=== PATIENT | female | born 1970 | race Caucasian/White ===

== ENCOUNTER 2017-05-15 16:39 | Emergency (ER) | payer OTHER ==
[~2017-05-15] VITALS: Ht 170.2 cm; Wt 86.0 kg
[~2017-05-15 16:39] MED LIST: METF10002
[2017-05-15] MEDS ORDERED: SODIUM CHLORIDE 0.9% 500 ML IV ONE (17:02)
[2017-05-15 17:31] LABS: BASOPHILS % 0.5 % (0.0-2.0); EOSINOPHILS % 0.5 % (0.0-5.0); HEMOGLOBIN. 13.3 g/dL (12.0-16.0); LYMPHOCYTES % 20.8 % (20.0-50.0); MEAN PLATELET VOLUME 8.8 fl (7.4-10.4); MONOCYTES % 4.3 % (2.0-8.0); NEUTROPHILS % 73.9 % (40.0-76.0); PLATELET 316 x1000/uL (130-400); RED CELL DISTRIBUTION WIDTH 13.8 % (11.6-14.6)
[2017-05-15 17:37] LABS: CHLORIDE 100 mEq/L (98-107)
[2017-05-15 17:43] LABS: PHOSPHORUS 3.1 mg/dL (2.5-4.9)
[2017-05-15 20:28] LABS: HCG SCREEN NEGATIVE
[2017-05-15] MEDS ORDERED: KETOROLAC 30MG/ML VIAL IV ONE (20:45)
[2017-05-15] MEDS ORDERED: BACITRACIN ZINC OINT UDPKT TOP ONE (20:45)
[2017-05-15] MEDS ORDERED: INSULIN GLARGINE UD 100 UNITS/ML SYR SUBCUT ONE (20:45)
[2017-05-15] MEDS ORDERED: CEPHALEXIN 500MG CAPSULE PO ONE (20:45)
[2017-05-15] MEDS ORDERED: LIDOCAINE HCL 1%/EPI 1:200,000 30 ML VIAL MC ONE (20:45)
[2017-05-15] MEDS ORDERED: LIDOCAINE 1%/EPI 1:100,000 10 ML VIAL IJ NR (20:47)
[2017-05-15 22:57] LABS: CHLORIDE 103 mEq/L (98-107)
[2017-05-15 23:06] LABS: *AMPHETAMINES SCREEN URINE NEGATIVE (NEGATIVE); *BARBITURATES SCREEN URINE NEGATIVE (NEGATIVE); *BENZODIAZEPINES SCREEN URINE NEGATIVE (NEGATIVE); *COCAINE SCREEN URINE NEGATIVE (NEGATIVE); METHADONE URINE SCREEN NEGATIVE (NEGATIVE); PHENCYCLIDINE URINE SCREEN NEGATIVE (NEGATIVE)
[2017-05-15 23:11] LABS: CANNABINOID URINE SCREEN PRESUMTIVE POSITIVE (NEGATIVE); OPIATES URINE SCREEN PRESUMTIVE POSITIVE (NEGATIVE)
[2017-05-15 23:50] VITALS: BP 128/80
== END 2017-05-16 00:15 | disposition home or self-care (01) ==
LOC: ER 16:39
DX: E11.65 Type 2 diabetes mellitus with hyperglycemia (principal); L02.415 Cutaneous abscess of right lower limb; I10 Essential (primary) hypertension; F17.200 Nicotine dependence, unspecified, uncomplicated; F12.10 Cannabis abuse, uncomplicated; Z98.890 Other specified postprocedural states; Z79.4 Long term (current) use of insulin
CPT/HCPCS: 36415; 73590; 80048; 80305; 82962; 83735; 84100; 84703; 85025; 96361; 96372; 96374; 99285; J1815; J1885; J3490; J7040

== ENCOUNTER 2017-08-18 03:55 | Emergency (ER) | payer OTHER ==
[~2017-08-18] VITALS: Ht 170.2 cm; Wt 91.0 kg
[~2017-08-18 03:55] MED LIST changes: -METF10002; +METF10004
[2017-08-18] MEDS ORDERED: LIDOCAINE 5% PATCH TOP SCH (04:45)
[2017-08-18] MEDS ORDERED: KETOROLAC 60MG/2ML VIAL IM ONE (04:45)
[2017-08-18 05:50] VITALS: BP 132/71
== END 2017-08-18 06:13 | disposition home or self-care (01) ==
LOC: ER 03:55
DX: E11.621 Type 2 diabetes mellitus with foot ulcer (principal); I10 Essential (primary) hypertension; F17.200 Nicotine dependence, unspecified, uncomplicated; Z98.890 Other specified postprocedural states
CPT/HCPCS: 73630; 96372; 99284; 99406; J1885

== ENCOUNTER 2017-09-28 01:06 | Emergency (ER) | payer MEDICAID, OTHER ==
[~2017-09-28] VITALS: Ht 167.6 cm; Wt 73.0 kg
[2017-09-28] MEDS ORDERED: ONDANSETRON HCL 4MG/2ML VIAL IV ONE (02:00)
[2017-09-28] MEDS ORDERED: METOCLOPRAMIDE HCL 10MG/2ML VIAL IV ONE (02:00)
[2017-09-28] MEDS ORDERED: FAMOTIDINE 20MG/2ML VIAL IV STA (02:01)
[2017-09-28] MEDS ORDERED: SODIUM CHLORIDE 0.9% 1,000 ML IV ONE (02:01)
[2017-09-28] MEDS ORDERED: KETOROLAC 30MG/ML VIAL IV ONE (02:15)
[2017-09-28 02:51] LABS: CHLORIDE 97 mEq/L (98-107)
[2017-09-28 02:55] LABS: ETHANOL BLOOD < 10 mg/dL
[2017-09-28 03:13] LABS: BASOPHILS % 0.1 % (0.0-2.0); HEMOGLOBIN. 15.4 g/dL (12.0-16.0); LYMPHOCYTES % 9.3 % (20.0-50.0); MEAN CORPUSCULAR HEMOGLOBIN 30.5 pg (28.0-32.0); MEAN CORPUSCULAR VOLUME 90.8 fL (81.0-99.0); MEAN PLATELET VOLUME 8.7 fl (7.4-10.4); MONOCYTES % 2.7 % (2.0-8.0); NEUTROPHILS % 87.9 % (40.0-76.0); PLATELET 393 x1000/uL (130-400); RED BLOOD CELL COUNT 5.06 mill/uL (4.2-5.4); RED CELL DISTRIBUTION WIDTH 13.9 % (11.6-14.6)
[2017-09-28 04:43] VITALS: BP 121/78
== END 2017-09-28 04:44 | disposition home or self-care (01) ==
LOC: ER 01:29 → EDBEDREQ 02:08 → ER 04:44 → CANBEDREQ 05:56
DX: F11.23 Opioid dependence with withdrawal (principal); E11.65 Type 2 diabetes mellitus with hyperglycemia; I10 Essential (primary) hypertension; R19.7 Diarrhea, unspecified; M54.30 Sciatica, unspecified side; R20.8 Other disturbances of skin sensation; F17.200 Nicotine dependence, unspecified, uncomplicated; Z98.890 Other specified postprocedural states; Z88.9 Allergy status to unspecified drugs, medicaments and biological substances; Z79.899 Other long term (current) drug therapy
CPT/HCPCS: 36415; 80053; 82962; 83690; 85025; 96374; 96375; 99284; G0482; J1885; J2405; J2765; J3490; J7030; Z7610

== ENCOUNTER 2017-12-01 13:29 | Emergency (ER) | payer MEDICAID, OTHER ==
[~2017-12-01] VITALS: Ht 170.2 cm; Wt 95.0 kg
[~2017-12-01 13:29] MED LIST changes: +METF-416; -METF10004
[2017-12-01] MEDS ORDERED: HYDROCODONE/ACETAMINOPHEN 5/325MG TABLET PO STA (14:49)
[2017-12-01] MEDS ORDERED: SODIUM CHLORIDE 0.9% 1,000 ML IV ONE (14:49)
[2017-12-01 15:20] LABS: BASOPHILS % 0.7 % (0.0-2.0); EOSINOPHILS % 1.5 % (0.0-5.0); HEMATOCRIT. 36.8 % (36.0-48.0); HEMOGLOBIN. 12.4 g/dL (12.0-16.0); LYMPHOCYTES % 26.5 % (20.0-50.0); MEAN CORPUSCULAR HEMOGLOBIN 31.4 pg (28.0-32.0); MEAN CORPUSCULAR VOLUME 93.6 fL (81.0-99.0); MEAN PLATELET VOLUME 8.4 fl (7.4-10.4); MONOCYTES % 3.7 % (2.0-8.0); NEUTROPHILS % 67.6 % (40.0-76.0); PLATELET 338 x1000/uL (130-400); RED BLOOD CELL COUNT 3.93 mill/uL (4.2-5.4); RED CELL DISTRIBUTION WIDTH 13.5 % (11.6-14.6)
[2017-12-01 15:29] LABS: PROTHROMBIN TIME 10.4 sec (9.1-11.1)
[2017-12-01 15:32] LABS: CHLORIDE 102 mEq/L (98-107)
[2017-12-01] MEDS ORDERED: INSULIN REGULAR (HUMULIN R) 300UNITS/3ML SUBCUT ONE (16:00)
[2017-12-01 16:07] LABS: C REACTIVE PROTEIN QUANT 3.6 mg/L (0.0-3.0)
[2017-12-01 16:58] LABS: CLARITY URINE CLEAR (CLEAR); COLOR URINE YELLOW (YELLOW); KETONES URINE NEGATIVE (NEGATIVE); LEUKOCYTE ESTERASE URINE NEGATIVE (NEGATIVE); NITRITE URINE NEGATIVE (NEGATIVE); OCCULT BLOOD URINE TRACE (NEGATIVE); PH URINE 5.5 (4.5-8.0); PROTEIN URINE 1+ (NEGATIVE); SPECIFIC GRAVITY URINE 1.042 (1.005-1.030); UROBILINOGEN URINE 0.2 E.U./dL (0.2-1.0)
[2017-12-01 17:50] VITALS: BP 131/74
== END 2017-12-01 18:02 | disposition home or self-care (01) ==
LOC: ER 14:27
DX: E11.621 Type 2 diabetes mellitus with foot ulcer (principal); L97.411 Non-pressure chronic ulcer of right heel and midfoot limited to breakdown of skin; I10 Essential (primary) hypertension; F17.200 Nicotine dependence, unspecified, uncomplicated; Z79.4 Long term (current) use of insulin
CPT/HCPCS: 36415; 73630; 80053; 81003; 81025; 82962; 83605; 84484; 85025; 85610; 86140; 96372; 99285; J1815; J7030

== ENCOUNTER 2018-09-02 21:36 | Emergency (ER) | payer MEDICAID ==
[~2018-09-02] VITALS: Ht 170.2 cm; Wt 100.0 kg
[~2018-09-02 21:36] MED LIST changes: +BENA10TA10 PO; +GABA-290 PO; +INSU100I24 SQ; +LORA2TAB95 PO; -METF-416; +METF-416 PO; +SIMV10TA6 PO
[2018-09-02 23:09] LABS: BASOPHILS % 0.7 % (0.0-2.0); EOSINOPHILS % 2.5 % (0.0-5.0); HEMATOCRIT. 33.3 % (36.0-48.0); HEMOGLOBIN. 10.8 g/dL (12.0-16.0); MEAN CORPUSCULAR HEMOGLOBIN 30.1 pg (28.0-32.0); MEAN CORPUSCULAR VOLUME 93.2 fL (81.0-99.0); MEAN PLATELET VOLUME 9.1 fl (7.4-10.4); NEUTROPHILS % 60.8 % (40.0-76.0); PLATELET 256 x1000/uL (130-400); RED BLOOD CELL COUNT 3.57 mill/uL (4.2-5.4); RED CELL DISTRIBUTION WIDTH 14.5 % (11.6-14.6)
[2018-09-02 23:13] LABS: HCG SCREEN NEGATIVE
[2018-09-02 23:13] LABS: CLARITY URINE CLEAR (CLEAR); COLOR URINE YELLOW (YELLOW); KETONES URINE NEGATIVE (NEGATIVE); LEUKOCYTE ESTERASE URINE NEGATIVE (NEGATIVE); NITRITE URINE NEGATIVE (NEGATIVE); OCCULT BLOOD URINE TRACE (NEGATIVE); PROTEIN URINE 1+ (NEGATIVE); SPECIFIC GRAVITY URINE 1.039 (1.005-1.030); UROBILINOGEN URINE 0.2 E.U./dL (0.2-1.0)
[2018-09-02 23:15] LABS: CHLORIDE 103 mEq/L (98-107)
[2018-09-02 23:16] LABS: PROTHROMBIN TIME 10.1 sec (9.6-11.0)
[2018-09-02 23:21] LABS: ETHANOL BLOOD < 10 mg/dL
[2018-09-02 23:24] LABS: *AMPHETAMINES SCREEN URINE NEGATIVE (NEGATIVE); *BARBITURATES SCREEN URINE NEGATIVE (NEGATIVE); *COCAINE SCREEN URINE NEGATIVE (NEGATIVE); METHADONE URINE SCREEN NEGATIVE (NEGATIVE)
[2018-09-02 23:25] LABS: CANNABINOID URINE SCREEN NEGATIVE (NEGATIVE); PHENCYCLIDINE URINE SCREEN NEGATIVE (NEGATIVE)
[2018-09-02 23:29] LABS: *BENZODIAZEPINES SCREEN URINE NEGATIVE (NEGATIVE)
[2018-09-02] MEDS ORDERED: ONDANSETRON HCL 4MG/2ML INJ IV STA (23:34)
[2018-09-02] MEDS ORDERED: MORPHINE SULFATE 4 MG/ML CPJ (NOT FOR IM USE) IV STA (23:34)
[2018-09-02 23:43] LABS: OPIATES URINE SCREEN PRESUMTIVE POSITIVE (NEGATIVE)
[2018-09-02] MEDS ORDERED: SODIUM CHLORIDE 0.9% 2,000 ML IV ONE (23:48)
[2018-09-03] MEDS ORDERED: INSULIN REGULAR (HUMULIN R) 300UNITS/3ML SUBCUT ONE
[2018-09-03] MEDS ORDERED: KETOROLAC 30MG/ML VIAL IV ONE (01:45)
[2018-09-03 04:48] VITALS: BP 165/79
== END 2018-09-03 04:50 | disposition home or self-care (01) ==
LOC: ER 21:36
DX: E11.65 Type 2 diabetes mellitus with hyperglycemia (principal); R31.9 Hematuria, unspecified; R11.10 Vomiting, unspecified; R06.02 Shortness of breath; F17.200 Nicotine dependence, unspecified, uncomplicated; Z79.4 Long term (current) use of insulin; Z79.899 Other long term (current) drug therapy; Z87.39 Personal history of other diseases of the musculoskeletal system and connective tissue
CPT/HCPCS: 36415; 71045; 74176; 80053; 80305; 80320; 81003; 82962; 83690; 84703; 85025; 85610; 93005; 96361; 96372; 96374; 96375; 99284; J1815; J2270; J2405; J7030; J1885; G0480

== ENCOUNTER 2018-10-20 12:56 | Inpatient (IN) | payer MEDICAID ==
[~2018-10-20] VITALS: Ht 170.2 cm; Wt 100.9 kg
[~2018-10-20 12:56] MED LIST changes: -BENA10TA10 PO; +BENA10TA12 PO
[2018-10-20] MEDS ORDERED: ONDANSETRON HCL 4MG/2ML INJ IV STA (13:54)
[2018-10-20] MEDS ORDERED: MORPHINE SULFATE 4 MG/ML CPJ (NOT FOR IM USE) IV STA (13:54)
[2018-10-20] MEDS ORDERED: SODIUM CHLORIDE 0.9% 1000ML BAG (SEPSIS BOLUS) IV ONE (14:00)
[2018-10-20] MEDS ORDERED: VANCOMYCIN 1 G PREMIX 200 ML IV ONE (14:00)
[2018-10-20] MEDS ORDERED: ACETAMINOPHEN 325MG TABLET PO ONE (14:00)
[2018-10-20] MEDS ORDERED: PIPERACILLIN/TAZ 3.375G PREMIX 50 ML IV ONE (14:00)
[2018-10-20 14:15] LABS: BG BASE EXCESS -4.3 mmol/L (-2.0-2.0); BG CARBOXYHEMOGLOBIN 4.1 % (0.5-1.5); BG DEOXYHEMOGLOBIN 6.8 % (0.0-5.0); BG FRACTION INSPIRED OXYGEN 21; BG METHEMOGLOBIN 0.2 % (0.0-1.5); BG OXYGEN SATURATION 92.9 % (92.0-98.5); BG OXYHEMOGLOBIN 88.9 % (94.0-97.0); BG PCO2 39.5 mmHg (35.0-45.0); BG PH 7.344 (7.350-7.450); BG SAMPLE SITE RIGHT BRACHIAL; BG TOTAL HEMOGLOBIN 11.3 g/dL (12.0-18.0); BG VENT MODE ROOM AIR
[2018-10-20 14:29] LABS: HEMATOCRIT. 37.2 % (36.0-48.0); HEMOGLOBIN. 11.9 g/dL (12.0-16.0); MEAN CORPUSCULAR HEMOGLOBIN 30.3 pg (28.0-32.0); MEAN CORPUSCULAR VOLUME 94.9 fL (81.0-99.0); MEAN PLATELET VOLUME 9.4 fl (7.4-10.4); PLATELET 276 x1000/uL (130-400); RED BLOOD CELL COUNT 3.92 mill/uL (4.2-5.4); RED CELL DISTRIBUTION WIDTH 14.4 % (11.6-14.6)
[2018-10-20 14:34] LABS: CHLORIDE 90 mEq/L (98-107)
[2018-10-20 14:35] LABS: PROTHROMBIN TIME 9.9 sec (9.6-11.0)
[2018-10-20 14:41] LABS: BETA HYDROXYBUTYRATE 0.1 mMol/L (0.0-0.3)
[2018-10-20 14:42] LABS: HCG SCREEN NEGATIVE
[2018-10-20] MEDS ORDERED: INSULIN REGULAR (HUMULIN R) 300UNITS/3ML IV ONE (14:45)
[2018-10-20 15:13] LABS: CLARITY URINE CLEAR (CLEAR); COLOR URINE YELLOW (YELLOW); KETONES URINE NEGATIVE (NEGATIVE); LEUKOCYTE ESTERASE URINE NEGATIVE (NEGATIVE); NITRITE URINE NEGATIVE (NEGATIVE); OCCULT BLOOD URINE 1+ (NEGATIVE); PH URINE 5.5 (4.5-8.0); PROTEIN URINE NEGATIVE (NEGATIVE); UROBILINOGEN URINE 0.2 E.U./dL (0.2-1.0)
[2018-10-20 15:26] LABS: *AMPHETAMINES SCREEN URINE NEGATIVE (NEGATIVE); *BENZODIAZEPINES SCREEN URINE NEGATIVE (NEGATIVE); *COCAINE SCREEN URINE NEGATIVE (NEGATIVE); CANNABINOID URINE SCREEN NEGATIVE (NEGATIVE); METHADONE URINE SCREEN NEGATIVE (NEGATIVE); PHENCYCLIDINE URINE SCREEN NEGATIVE (NEGATIVE)
[2018-10-20 15:28] LABS: *BARBITURATES SCREEN URINE NEGATIVE (NEGATIVE); OPIATES URINE SCREEN PRESUMTIVE POSITIVE (NEGATIVE)
[2018-10-20] MEDS: SODIUM CHLORIDE 0.9% 1,000 ML IV SCH (16:10)
[2018-10-20] MEDS ORDERED: ACETAMINOPHEN 325MG TABLET PO PRN (16:15)
[2018-10-20] MEDS ORDERED: PIPERACILLIN/TAZ 3.375G PREMIX 50 ML IV SCH (16:15)
[2018-10-20] MEDS ORDERED: DOCUSATE SODIUM 100MG CAPSULE PO PRN (16:15)
[2018-10-20] MEDS ORDERED: ENOXAPARIN 40MG/0.4ML SYR SUBCUT SCH (16:15)
[2018-10-20] MEDS ORDERED: ONDANSETRON HCL 4MG/2ML INJ IV PRN (16:15)
[2018-10-20] MEDS ORDERED: IPRATROPIUM/ALBUTEROL 0.5-3(2.5)MG/3ML NEB HHN PRN (16:15)
[2018-10-20] MEDS ORDERED: DIPHENHYDRAMINE 50MG/ML VIAL IV PRN (16:15)
[2018-10-20] MEDS ORDERED: MAGNESIUM/ALUMINUM HYDROXIDE/SIMETHICONE 30ML UDC PO PRN (16:15)
[2018-10-20] MEDS ORDERED: CLONIDINE 0.1MG TABLET PO PRN (16:15)
[2018-10-20] MEDS ORDERED: GUAIFENESIN 200MG/10ML SUGAR FREE UDC PO PRN (16:15)
[2018-10-20 16:45] LABS: PLATELET ESTIMATE NORMAL
[2018-10-20 16:53] LABS: PHOSPHORUS 2.6 mg/dL (2.5-4.9)
[2018-10-20] MEDS ORDERED: INSULIN REGULAR (HUMULIN R) 300UNITS/3ML SUBCUT NR (18:00)
[2018-10-20] MEDS ORDERED: MORPHINE SULFATE 4 MG/ML CPJ (NOT FOR IM USE) IV NR (18:15)
[2018-10-20] MEDS ORDERED: PIPERACILLIN/TAZ 3.375G PREMIX 50 ML IV NR (21:00)
[2018-10-20] MEDS ORDERED: ENOXAPARIN 40MG/0.4ML SYR SUBCUT NR (21:15)
[2018-10-20 22:35] VITALS: BP 138/77
[2018-10-20] MEDS ORDERED: DEXTROSE 50% WATER 50ML SYRINGE IV PRN (23:30)
[2018-10-21] VITALS (8 sets, daily range): BP systolic 100–156; BP diastolic 55–84
[2018-10-21] MEDS: HYDROCODONE/ACETAMINOPHEN 5/325MG TABLET PO PRN ×2 (00:14→06:34)
[2018-10-21] MEDS: SODIUM CHLORIDE 0.9% 1,000 ML IV SCH ×3 (02:58→23:09)
[2018-10-21] MEDS ORDERED: PIPERACILLIN/TAZOBACTAM 3.375 G in DEXT 5% WATER 100 ML IV SCH (06:00)
[2018-10-21] MEDS ORDERED: MORPHINE SULFATE 2 MG/ML CPJ (NOT FOR IM USE) IV PRN (06:15)
[2018-10-21] MEDS: BLOOD SUGAR DIAGNOSTIC STRIP TEST SCH ×4 (07:00→21:49)
[2018-10-21 07:16] LABS: CHLORIDE 108 mEq/L (98-107)
[2018-10-21 07:24] LABS: HDL CHOLESTEROL 42 mg/dL (40-59)
[2018-10-21 07:26] LABS: LDL CHOLESTEROL 115 mg/dL (5-100)
[2018-10-21] MEDS: INSULIN LISPRO 100 UNITS/ML SUBCUT SCH ×4 (07:45→23:07)
[2018-10-21] MEDS: ENOXAPARIN 30MG/0.3ML SYR SUBCUT SCH ×2 (09:29→21:46)
[2018-10-21] MEDS ORDERED: LORAZEPAM 1MG TABLET PO PRN (10:00)
[2018-10-21] MEDS: BENAZEPRIL 10MG TABLET PO SCH (10:49)
[2018-10-21] MEDS: INSULIN GLARGINE UD 100 UNITS/ML SYR SUBCUT SCH ×2 (10:58→23:18)
[2018-10-21] MEDS: VANCOMYCIN 1500MG in DEXTROSE 5% WATER 250ML IV SCH ×2 (10:58→21:41)
[2018-10-21] MEDS ORDERED: VANCOMYCIN 1250MG in DEXTROSE 5% WATER 250ML IV SCH (12:00)
[2018-10-21] MEDS: PIPERACILLIN/TAZOBACTAM 3.375 G in DEXT 5% WATER 100 ML IV SCH ×2 (13:06→18:23)
[2018-10-21] MEDS: GABAPENTIN 300MG CAPSULE PO SCH ×2 (15:51→23:00)
[2018-10-21] MEDS: MORPHINE SULFATE 2 MG/ML CPJ (NOT FOR IM USE) IV PRN ×2 (15:53→23:01)
[2018-10-21] MEDS: SILVER SULFADIAZINE 1% CREAM 50GM TOP SCH (16:00)
[2018-10-21] MEDS ORDERED: HYDROCODONE/ACETAMINOPHEN 10/325MG TABLET PO PRN (18:45)
[2018-10-21] MEDS ORDERED: ATORVASTATIN CALCIUM 10MG TABLET PO SCH (21:00)
[2018-10-21] MEDS: DICLOFENAC SODIUM 75MG DR (EC) TABLET PO SCH (21:41)
[2018-10-22] VITALS: BP 104/56
[2018-10-22] MEDS: PIPERACILLIN/TAZOBACTAM 3.375 G in DEXT 5% WATER 100 ML IV SCH ×3 (01:01→12:15)
[2018-10-22 04:00] VITALS: BP 96/56
[2018-10-22] MEDS: GABAPENTIN 300MG CAPSULE PO SCH ×2 (06:36→13:08)
[2018-10-22] MEDS: BLOOD SUGAR DIAGNOSTIC STRIP TEST SCH ×2 (06:41→12:07)
[2018-10-22 06:45] LABS: BASOPHILS % 0.4 % (0.0-2.0); EOSINOPHILS % 2.4 % (0.0-5.0); HEMATOCRIT. 29.5 % (36.0-48.0); HEMOGLOBIN. 9.8 g/dL (12.0-16.0); LYMPHOCYTES % 26.5 % (20.0-50.0); MEAN CORPUSCULAR HEMOGLOBIN 29.3 pg (28.0-32.0); MEAN CORPUSCULAR VOLUME 88.5 fL (81.0-99.0); MONOCYTES % 6.5 % (2.0-8.0); NEUTROPHILS % 64.2 % (40.0-76.0); PLATELET 249 x1000/uL (130-400); RED BLOOD CELL COUNT 3.34 mill/uL (4.2-5.4); RED CELL DISTRIBUTION WIDTH 14.6 % (11.6-14.6)
[2018-10-22] MEDS: MORPHINE SULFATE 2 MG/ML CPJ (NOT FOR IM USE) IV PRN ×2 (06:48→12:15)
[2018-10-22 08:00] VITALS: BP 114/62
[2018-10-22] MEDS: INSULIN LISPRO 100 UNITS/ML SUBCUT SCH ×2 (08:10→12:50)
[2018-10-22] MEDS: SODIUM CHLORIDE 0.9% 1,000 ML IV SCH (08:11)
[2018-10-22] MEDS: VANCOMYCIN 1500MG in DEXTROSE 5% WATER 250ML IV SCH (09:33)
[2018-10-22] MEDS: BENAZEPRIL 10MG TABLET PO SCH (09:34)
[2018-10-22] MEDS: ENOXAPARIN 30MG/0.3ML SYR SUBCUT SCH (09:34)
[2018-10-22] MEDS: DICLOFENAC SODIUM 75MG DR (EC) TABLET PO SCH (09:34)
[2018-10-22] MEDS: SILVER SULFADIAZINE 1% CREAM 50GM TOP SCH (09:43)
[2018-10-22] MEDS: INSULIN GLARGINE UD 100 UNITS/ML SYR SUBCUT SCH (10:00)
[2018-10-22 12:00] VITALS: BP 126/66
[2018-10-22] MEDS ORDERED: LEVO750T21 MT (12:42)
[2018-10-22] MEDS ORDERED: SULF1TAB48 MT (12:42)
[2018-10-22] MEDS ORDERED: ATOR10TA PO (12:42)
[2018-10-22] MEDS ORDERED: LANTUSUD SUBCUT (12:43)
[2018-10-22] MEDS ORDERED: INSULIN LISPRO 100 UNITS/ML SUBCUT NR (12:45)
[2018-10-22 14:51] VITALS: BP 126/66
[2018-10-22] MEDS ORDERED: VANCOMYCIN 1250MG in DEXTROSE 5% WATER 250ML IV SCH (21:00)
[2018-10-22] MEDS ORDERED: INSULIN GLARGINE UD 100 UNITS/ML SYR SUBCUT SCH (22:00)
== END 2018-10-22 15:18 | disposition home health service (06) | DRG 720 ==
LOC: ER 14:08 → 3WST 14:42 → EDBEDREQTM 14:47 → EDBEDREQ 14:47 → ENRESERV 22:01 → 6EST 10-21 14:23
PROVIDERS: ADMIT Internal Medicine; ATTEND Internal Medicine
DX: A41.9 Sepsis, unspecified organism (principal); E87.2 Acidosis; E11.621 Type 2 diabetes mellitus with foot ulcer; E11.42 Type 2 diabetes mellitus with diabetic polyneuropathy; E11.319 Type 2 diabetes mellitus with unspecified diabetic retinopathy without macular edema; L97.529 Non-pressure chronic ulcer of other part of left foot with unspecified severity; R31.9 Hematuria, unspecified; L03.032 Cellulitis of left toe; F17.200 Nicotine dependence, unspecified, uncomplicated; E86.0 Dehydration; D64.9 Anemia, unspecified; Z79.4 Long term (current) use of insulin; I10 Essential (primary) hypertension; E78.5 Hyperlipidemia, unspecified; E87.0 Hyperosmolality and hypernatremia; E05.90 Thyrotoxicosis, unspecified without thyrotoxic crisis or storm; E11.65 Type 2 diabetes mellitus with hyperglycemia; E78.00 Pure hypercholesterolemia, unspecified; Z79.84 Long term (current) use of oral hypoglycemic drugs
CPT/HCPCS: 36415; 36600; 71045; 73630; 73721; 80048; 80061; 80202; 80305; 81003; 82010; 82375; 82728; 82805; 82962; 83036; 83540; 83550; 83605; 83735; 83880; 83930; 83935; 84100; 84145; 84443; 84484; 84703; 87070; 87077; 87106; 93005; 93970; 97116; 97162; 97166; 99291; J1200; J1650; J1815; J2270; J2405; J2543; J3370; J7030; J7060

== ENCOUNTER 2019-02-19 13:34 | Inpatient (IN) | payer MEDICAID ==
[~2019-02-19] VITALS: Ht 170.2 cm; Wt 103.0 kg
[~2019-02-19 13:34] MED LIST changes: +ATOR10TA PO; -BENA10TA12 PO; +BENA10TA74 PO; -INSU100I24 SQ; +LANTUSUD SUBCUT; +LEVO750T21 MT; -SIMV10TA6 PO; +SULF1TAB48 MT
[2019-02-19] MEDS ORDERED: ONDANSETRON HCL 4MG/2ML INJ IV STA ×2 (15:11→16:14)
[2019-02-19] MEDS ORDERED: KETOROLAC 30MG/ML VIAL IV STA (15:11)
[2019-02-19] MEDS ORDERED: SODIUM CHLORIDE 0.9% 1,000 ML IV ONE ×4 (15:11→17:30)
[2019-02-19 15:43] LABS: EOSINOPHILS % 0.1 % (0.0-5.0); HEMOGLOBIN. 14.1 g/dL (12.0-16.0); LYMPHOCYTES % 9.1 % (20.0-50.0); MEAN CORPUSCULAR VOLUME 91.6 fL (81.0-99.0); MONOCYTES % 2.8 % (2.0-8.0); PLATELET 344 x1000/uL (130-400); RED CELL DISTRIBUTION WIDTH 13.2 % (11.6-14.6)
[2019-02-19 15:50] LABS: CHLORIDE 90 mEq/L (98-107)
[2019-02-19 15:57] LABS: BETA HYDROXYBUTYRATE 0.1 mMol/L (0.0-0.3)
[2019-02-19] MEDS ORDERED: MORPHINE SULFATE 4 MG/ML CPJ (NOT FOR IM USE) IV STA (16:14)
[2019-02-19] MEDS ORDERED: INSULIN REGULAR (HUMULIN R) 300UNITS/3ML SUBCUT ONE (17:30)
[2019-02-19 18:49] LABS: CLARITY URINE CLOUDY (CLEAR); COLOR URINE YELLOW (YELLOW); KETONES URINE NEGATIVE (NEGATIVE); LEUKOCYTE ESTERASE URINE NEGATIVE (NEGATIVE); NITRITE URINE NEGATIVE (NEGATIVE); OCCULT BLOOD URINE 1+ (NEGATIVE); PROTEIN URINE 3+ (NEGATIVE); SPECIFIC GRAVITY URINE 1.039 (1.005-1.030); UROBILINOGEN URINE 0.2 E.U./dL (0.2-1.0)
[2019-02-19 21:10] VITALS: BP 144/85
[2019-02-19] MEDS ORDERED: INSU100I24 SQ (21:54)
[2019-02-19] MEDS ORDERED: IPRATROPIUM/ALBUTEROL 0.5-3(2.5)MG/3ML NEB NEB PRN (23:30)
[2019-02-19] MEDS ORDERED: ACETAMINOPHEN 325MG TABLET PO PRN (23:30)
[2019-02-19] MEDS ORDERED: ONDANSETRON HCL 4MG/2ML INJ IV PRN (23:30)
[2019-02-19] MEDS ORDERED: CLONIDINE 0.1MG TABLET PO PRN (23:30)
[2019-02-20] VITALS: BP 140/73
[2019-02-20] MEDS: BENAZEPRIL 10MG TABLET PO SCH ×2 (00:02→09:02)
[2019-02-20] MEDS: SODIUM CHLORIDE 0.9% 1,000 ML IV SCH ×3 (00:04→20:23)
[2019-02-20] MEDS: INSULIN LISPRO 100 UNITS/ML SUBCUT SCH ×8 (00:20→20:58)
[2019-02-20] MEDS: MORPHINE SULFATE 2 MG/ML CPJ (NOT FOR IM USE) IV PRN ×5 (00:22→20:23)
[2019-02-20] MEDS: INSULIN GLARGINE UD 100 UNITS/ML SYR SUBCUT SCH ×3 (00:56→21:19)
[2019-02-20] MEDS: LORAZEPAM 2MG/ML CPJ IV PRN ×2 (02:03→21:19)
[2019-02-20 04:00] VITALS: BP 98/53
[2019-02-20] MEDS: GABAPENTIN 300MG CAPSULE PO SCH ×3 (05:58→21:19)
[2019-02-20] MEDS ORDERED: DEXTROSE 50% WATER 50ML SYRINGE IV PRN (06:15)
[2019-02-20] MEDS: BLOOD SUGAR DIAGNOSTIC STRIP TEST SCH ×4 (06:52→20:57)
[2019-02-20 08:00] VITALS: BP 107/67
[2019-02-20 08:18] LABS: BASOPHILS % 0.6 % (0.0-2.0); EOSINOPHILS % 1.4 % (0.0-5.0); HEMATOCRIT. 34.6 % (36.0-48.0); HEMOGLOBIN. 11.7 g/dL (12.0-16.0); LYMPHOCYTES % 30.7 % (20.0-50.0); MEAN CORPUSCULAR HEMOGLOBIN 30.1 pg (28.0-32.0); MEAN PLATELET VOLUME 8.7 fl (7.4-10.4); MONOCYTES % 4.8 % (2.0-8.0); NEUTROPHILS % 62.5 % (40.0-76.0); PLATELET 294 x1000/uL (130-400); RED BLOOD CELL COUNT 3.89 mill/uL (4.2-5.4)
[2019-02-20 08:21] LABS: CHLORIDE 107 mEq/L (98-107)
[2019-02-20] MEDS: ENOXAPARIN 30MG/0.3ML SYR SUBCUT SCH ×2 (09:02→20:22)
[2019-02-20] MEDS ORDERED: INFLUENZA VIRUS VACCINE(AFLURIA) 0.5ML SYR IM ONE (10:00)
[2019-02-20] MEDS ORDERED: POTASSIUM CHLORIDE 20MEQ TABLET SR PO NR (10:15)
[2019-02-20 12:00] VITALS: BP 107/60
[2019-02-20 16:00] VITALS: BP 110/70
[2019-02-20 20:00] VITALS: BP 127/72
[2019-02-20] MEDS ORDERED: ATORVASTATIN CALCIUM 10MG TABLET PO SCH (21:00)
[2019-02-21] VITALS: BP 142/78
[2019-02-21] MEDS: MORPHINE SULFATE 2 MG/ML CPJ (NOT FOR IM USE) IV PRN ×4 (00:41→13:04)
[2019-02-21 04:00] VITALS: BP 129/73
[2019-02-21] MEDS: GABAPENTIN 300MG CAPSULE PO SCH ×2 (06:44→13:02)
[2019-02-21] MEDS: INSULIN LISPRO 100 UNITS/ML SUBCUT SCH ×4 (06:45→13:15)
[2019-02-21] MEDS: BLOOD SUGAR DIAGNOSTIC STRIP TEST SCH ×2 (06:45→13:02)
[2019-02-21 07:36] LABS: CHLORIDE 108 mEq/L (98-107)
[2019-02-21 07:38] LABS: BASOPHILS % 0.6 % (0.0-2.0); EOSINOPHILS % 2.1 % (0.0-5.0); HEMATOCRIT. 32.7 % (36.0-48.0); HEMOGLOBIN. 10.9 g/dL (12.0-16.0); LYMPHOCYTES % 37.2 % (20.0-50.0); MEAN PLATELET VOLUME 8.8 fl (7.4-10.4); MONOCYTES % 5.5 % (2.0-8.0); NEUTROPHILS % 54.6 % (40.0-76.0); PLATELET 271 x1000/uL (130-400); RED BLOOD CELL COUNT 3.64 mill/uL (4.2-5.4); RED CELL DISTRIBUTION WIDTH 13.2 % (11.6-14.6)
[2019-02-21] MEDS: ENOXAPARIN 30MG/0.3ML SYR SUBCUT SCH (08:52)
[2019-02-21] MEDS: BENAZEPRIL 10MG TABLET PO SCH (08:52)
[2019-02-21] MEDS: INSULIN GLARGINE UD 100 UNITS/ML SYR SUBCUT SCH (10:00)
[2019-02-21 12:00] VITALS: BP 136/75
[2019-02-21 13:04] VITALS: BP 136/75
== END 2019-02-21 15:05 | disposition home or self-care (01) | DRG 420 ==
LOC: ER 13:44 → ENRESERV 20:26 → 6EST 21:27
PROVIDERS: ADMIT Internal Medicine; ATTEND Internal Medicine
DX: E11.00 Type 2 diabetes mellitus with hyperosmolarity without nonketotic hyperglycemic-hyperosmolar coma (NKHHC) (principal); E11.43 Type 2 diabetes mellitus with diabetic autonomic (poly)neuropathy; E11.65 Type 2 diabetes mellitus with hyperglycemia; G89.29 Other chronic pain; M54.5 Low back pain; E87.1 Hypo-osmolality and hyponatremia; I10 Essential (primary) hypertension; Z74.01 Bed confinement status; Z79.4 Long term (current) use of insulin; Z79.899 Other long term (current) drug therapy; M54.30 Sciatica, unspecified side
CPT/HCPCS: 36415; 71045; 80048; 80053; 81003; 82010; 82962; 83036; 85025; 93005; 96361; 96372; 96374; 96375; 96376; 99285; C1893; J1650; J1815; J2060; J2270; J2405; J7030

== ENCOUNTER 2019-03-22 12:45 | Emergency (ER) | payer MEDICAID ==
[~2019-03-22] VITALS: Ht 170.2 cm; Wt 95.0 kg
[~2019-03-22 12:45] MED LIST changes: +INSU100I24 SQ
[2019-03-22 13:01] VITALS: BP 185/98
== END 2019-03-22 18:46 | disposition left against medical advice (07) ==
LOC: ER 12:49
DX: Z53.21 Procedure and treatment not carried out due to patient leaving prior to being seen by health care provider (principal); I10 Essential (primary) hypertension; Z86.73 Personal history of transient ischemic attack (TIA), and cerebral infarction without residual deficits
CPT/HCPCS: 82962

== ENCOUNTER 2019-05-22 03:39 | Inpatient (IN) | payer MEDICAID ==
[~2019-05-22] VITALS: Ht 170.2 cm; Wt 98.0 kg
[2019-05-22 05:10] LABS: CHLORIDE 110 mEq/L (98-107)
[2019-05-22 05:12] LABS: BASOPHILS % 0.4 % (0.0-2.0); EOSINOPHILS % 3.1 % (0.0-5.0); HEMOGLOBIN. 10.8 g/dL (12.0-16.0); LYMPHOCYTES % 17.4 % (20.0-50.0); MEAN CORPUSCULAR HEMOGLOBIN 30.9 pg (28.0-32.0); MEAN CORPUSCULAR VOLUME 91.1 fL (81.0-99.0); MEAN PLATELET VOLUME 8.8 fl (7.4-10.4); MONOCYTES % 4.6 % (2.0-8.0); NEUTROPHILS % 74.5 % (40.0-76.0); PLATELET 314 x1000/uL (130-400); RED BLOOD CELL COUNT 3.51 mill/uL (4.2-5.4); RED CELL DISTRIBUTION WIDTH 14.3 % (11.6-14.6)
[2019-05-22] MEDS ORDERED: ACETAMINOPHEN 325MG TABLET PO STA (05:33)
[2019-05-22] MEDS ORDERED: NITROGLYCERIN 0.4MG TABLET SL SL ONE (07:00)
[2019-05-22] MEDS ORDERED: HYDROCODONE/ACETAMINOPHEN 10/325MG TABLET PO ONE (08:00)
[2019-05-22] MEDS ORDERED: IOHEXOL-350 100 ML BOTTLE ONE (10:04)
[2019-05-22] MEDS ORDERED: AZITHROMYCIN 500 MG in DEXT 5% WATER 250 ML IV STA (11:05)
[2019-05-22] MEDS ORDERED: CEFTRIAXONE 2 G PREMIX 50 ML IV ONE (11:15)
[2019-05-22] MEDS ORDERED: FUROSEMIDE 20MG/2ML VIAL IVP NR (12:15)
[2019-05-22] MEDS ORDERED: METOCLOPRAMIDE HCL 10MG/2ML VIAL IV PRN (12:45)
[2019-05-22] MEDS ORDERED: DEXTROSE 50% WATER 50ML SYRINGE IV PRN (12:45)
[2019-05-22 12:58] LABS: CLARITY URINE CLEAR (CLEAR); COLOR URINE YELLOW (YELLOW); KETONES URINE NEGATIVE (NEGATIVE); LEUKOCYTE ESTERASE URINE NEGATIVE (NEGATIVE); NITRITE URINE NEGATIVE (NEGATIVE); OCCULT BLOOD URINE TRACE (NEGATIVE); PH URINE 7.5 (4.5-8.0); PROTEIN URINE 3+ (NEGATIVE); SPECIFIC GRAVITY URINE 1.029 (1.005-1.030); UROBILINOGEN URINE 0.2 E.U./dL (0.2-1.0)
[2019-05-22 13:23] LABS: *AMPHETAMINES SCREEN URINE NEGATIVE (NEGATIVE); *BARBITURATES SCREEN URINE NEGATIVE (NEGATIVE)
[2019-05-22 13:24] LABS: *BENZODIAZEPINES SCREEN URINE NEGATIVE (NEGATIVE); *COCAINE SCREEN URINE NEGATIVE (NEGATIVE); CANNABINOID URINE SCREEN NEGATIVE (NEGATIVE); METHADONE URINE SCREEN NEGATIVE (NEGATIVE); PHENCYCLIDINE URINE SCREEN NEGATIVE (NEGATIVE)
[2019-05-22 13:25] LABS: OPIATES URINE SCREEN PRESUMTIVE POSITIVE (NEGATIVE)
[2019-05-22] MEDS: MORPHINE SULFATE 2 MG/ML CPJ (NOT FOR IM USE) IV PRN ×3 (13:25→22:00)
[2019-05-22 16:00] VITALS: BP 141/72
[2019-05-22 16:39] VITALS: BP 141/72
[2019-05-22] MEDS: THIAMINE HCL 100MG TABLET PO SCH (17:54)
[2019-05-22] MEDS: BLOOD SUGAR DIAGNOSTIC STRIP TEST SCH ×2 (17:54→21:58)
[2019-05-22] MEDS: ENOXAPARIN 100MG/ML SYR SUBCUT SCH (17:54)
[2019-05-22] MEDS ORDERED: PNEUMOCOCCAL 23-VAL P-SAC VAC 0.5 ML IM ONE (18:00)
[2019-05-22] MEDS: INSULIN LISPRO 100 UNITS/ML SUBCUT SCH ×2 (18:10→21:56)
[2019-05-22 20:00] VITALS: BP 142/94
[2019-05-22] MEDS ORDERED: LORAZEPAM 1MG TABLET PO PRN (20:45)
[2019-05-22] MEDS: ASCORBIC ACID 500 MG TABLET PO SCH (21:57)
[2019-05-22] MEDS: AMLODIPINE 5MG TABLET PO SCH (21:57)
[2019-05-22] MEDS: HYDRALAZINE HCL 50MG TABLET PO SCH (21:57)
[2019-05-23] VITALS: BP 161/72
[2019-05-23] MEDS: MORPHINE SULFATE 2 MG/ML CPJ (NOT FOR IM USE) IV PRN ×3 (03:20→14:34)
[2019-05-23 04:00] VITALS: BP 161/71
[2019-05-23] MEDS: ENOXAPARIN 100MG/ML SYR SUBCUT SCH (05:47)
[2019-05-23] MEDS: ACETAMINOPHEN 325MG TABLET PO PRN ×2 (06:02→13:05)
[2019-05-23] MEDS: INSULIN LISPRO 100 UNITS/ML SUBCUT SCH ×3 (07:51→17:10)
[2019-05-23] MEDS: BLOOD SUGAR DIAGNOSTIC STRIP TEST SCH ×3 (07:51→17:09)
[2019-05-23 08:00] VITALS: BP 165/78
[2019-05-23] MEDS ORDERED: AZITHROMYCIN 500 MG TABLET PO NR (09:00)
[2019-05-23] MEDS ORDERED: ZINC SULFATE 220 MG ( 50 ) CAPSULE PO SCH (09:00)
[2019-05-23] MEDS ORDERED: FUROSEMIDE 20MG/2ML VIAL IVP SCH (09:00)
[2019-05-23] MEDS ORDERED: FUROSEMIDE 40MG/4ML VIAL IVP SCH (09:00)
[2019-05-23] MEDS ORDERED: CEFTRIAXONE 1 G PREMIX 50 ML IV SCH (09:00)
[2019-05-23] MEDS: THIAMINE HCL 100MG TABLET PO SCH (09:04)
[2019-05-23] MEDS: ASCORBIC ACID 500 MG TABLET PO SCH (09:05)
[2019-05-23] MEDS: HYDRALAZINE HCL 50MG TABLET PO SCH (09:05)
[2019-05-23] MEDS: AMLODIPINE 5MG TABLET PO SCH (09:05)
[2019-05-23 12:15] VITALS: BP 181/86
[2019-05-23] MEDS ORDERED: HYDROXYCHLOROQUINE SULFATE 200MG TABLET PO SCH ×2 (13:45)
[2019-05-23] MEDS ORDERED: HYDRALAZINE HCL 50MG TABLET PO SCH (13:45)
[2019-05-23] MEDS ORDERED: OXYCODONE HCL/ACETAMINOPHEN 5/325MG TABLET PO PRN (14:00)
[2019-05-23 14:34] VITALS: BP 181/86
[2019-05-23] MEDS ORDERED: CLONIDINE 0.1MG TABLET PO PRN (15:45)
[2019-05-24] MEDS ORDERED: CEFTRIAXONE 1 G PREMIX 50 ML IV SCH (09:00)
[2019-05-24] MEDS ORDERED: AZITHROMYCIN 250 MG TABLET PO SCH (09:00)
[2019-05-24] MEDS ORDERED: HYDROXYCHLOROQUINE SULFATE 200MG TABLET PO SCH (09:00)
== END 2019-05-23 17:35 | disposition left against medical advice (07) | DRG 133 ==
LOC: ER 03:59 → 7WST 11:07 → ENRESERV 12:15 → 7WST 16:14 → UNDODISIN 05-23 17:35
PROVIDERS: ADMIT Internal Medicine; ATTEND Internal Medicine
DX: J96.00 Acute respiratory failure, unspecified whether with hypoxia or hypercapnia (principal); J18.9 Pneumonia, unspecified organism; I11.0 Hypertensive heart disease with heart failure; E11.40 Type 2 diabetes mellitus with diabetic neuropathy, unspecified; I50.40 Unspecified combined systolic (congestive) and diastolic (congestive) heart failure; E87.8 Other disorders of electrolyte and fluid balance, not elsewhere classified; E11.319 Type 2 diabetes mellitus with unspecified diabetic retinopathy without macular edema; Z53.29 Procedure and treatment not carried out because of patient's decision for other reasons; I82.4Z1 Acute embolism and thrombosis of unspecified deep veins of right distal lower extremity; F17.210 Nicotine dependence, cigarettes, uncomplicated; D64.9 Anemia, unspecified; E44.1 Mild protein-calorie malnutrition; E66.9 Obesity, unspecified; M54.30 Sciatica, unspecified side; Z20.828 Contact with and (suspected) exposure to other viral communicable diseases; I82.461 Acute embolism and thrombosis of right calf muscular vein; E78.5 Hyperlipidemia, unspecified; Z79.4 Long term (current) use of insulin; Z79.84 Long term (current) use of oral hypoglycemic drugs; Z79.899 Other long term (current) drug therapy; Z71.6 Tobacco abuse counseling; Z68.33 Body mass index [BMI] 33.0-33.9, adult; Z98.891 History of uterine scar from previous surgery
CPT/HCPCS: 36415; 71045; 71275; 80053; 80305; 81003; 82962; 83880; 84484; 85025; 85379; 87635; 87804; 93005; 93970; 99285; J0456; J0696; J1650; J1815; J1940; J2270; J7060; Q9967

== ENCOUNTER 2019-05-27 13:54 | Emergency (ER) | payer MEDICAID ==
[~2019-05-27] VITALS: Ht 170.2 cm; Wt 73.0 kg
[2019-05-27 15:56] LABS: BASOPHILS % 0.5 % (0.0-2.0); EOSINOPHILS % 1.5 % (0.0-5.0); HEMATOCRIT. 32.8 % (36.0-48.0); HEMOGLOBIN. 10.9 g/dL (12.0-16.0); LYMPHOCYTES % 16.2 % (20.0-50.0); MEAN CORPUSCULAR HEMOGLOBIN 29.8 pg (28.0-32.0); MEAN PLATELET VOLUME 7.9 fl (7.4-10.4); MONOCYTES % 3.3 % (2.0-8.0); NEUTROPHILS % 78.5 % (40.0-76.0); PLATELET 364 x1000/uL (130-400); RED BLOOD CELL COUNT 3.65 mill/uL (4.2-5.4)
[2019-05-27 16:01] LABS: CHLORIDE 111 mEq/L (98-107)
[2019-05-27 16:30] VITALS: BP 164/80
== END 2019-05-27 16:56 | disposition home or self-care (01) ==
LOC: ER 13:54
DX: J18.9 Pneumonia, unspecified organism (principal); I10 Essential (primary) hypertension; E11.9 Type 2 diabetes mellitus without complications; Z79.899 Other long term (current) drug therapy; Z79.4 Long term (current) use of insulin
CPT/HCPCS: 36415; 71045; 80053; 83880; 85025; 93005; 99285

== ENCOUNTER 2019-08-01 21:58 | Inpatient (IN) | payer MEDICAID ==
[~2019-08-01] VITALS: Ht 170.2 cm; Wt 93.0 kg
[2019-08-01] MEDS ORDERED: SODIUM CHLORIDE 0.9% 1,000 ML IV ONE (23:01)
[2019-08-01] MEDS ORDERED: KETOROLAC 15MG/ML VIAL IV ONE (23:15)
[2019-08-01] MEDS ORDERED: ONDANSETRON HCL 4MG/2ML INJ IV ONE (23:15)
[2019-08-01 23:28] LABS: HEMATOCRIT. 35.6 % (36.0-48.0); HEMOGLOBIN. 12.3 g/dL (12.0-16.0); MEAN CORPUSCULAR HEMOGLOBIN 30.2 pg (28.0-32.0); MEAN CORPUSCULAR VOLUME 87.3 fL (81.0-99.0); MEAN PLATELET VOLUME 9.1 fl (7.4-10.4); PLATELET 327 x1000/uL (130-400); RED BLOOD CELL COUNT 4.08 mill/uL (4.2-5.4); RED CELL DISTRIBUTION WIDTH 15.1 % (11.6-14.6)
[2019-08-01 23:29] LABS: CHLORIDE 98 mEq/L (98-107)
[2019-08-01 23:34] LABS: ETHANOL BLOOD < 10 mg/dL
[2019-08-01 23:41] LABS: BETA HYDROXYBUTYRATE 1.1 mMol/L (0.0-0.3)
[2019-08-02] VITALS (7 sets, daily range): BP systolic 110–173; BP diastolic 62–82
[2019-08-02] MEDS ORDERED: LABETALOL 5MG/ML SYR 20 MG/4 ML SYRINGE IV ONE (00:15)
[2019-08-02] MEDS ORDERED: VISCOUS LIDOCAINE 2% 15 ML UDC MM STA (00:51)
[2019-08-02] MEDS ORDERED: MAGNESIUM/ALUMINUM HYDROXIDE/SIMETHICONE 30ML UDC PO ONE (01:00)
[2019-08-02] MEDS ORDERED: ONDANSETRON HCL 4MG/2ML INJ IV NR (01:00)
[2019-08-02] MEDS ORDERED: MORPHINE SULFATE 4 MG/ML CPJ (NOT FOR IM USE) IV NR (01:00)
[2019-08-02 01:54] LABS: CLARITY URINE CLEAR (CLEAR); COLOR URINE YELLOW (YELLOW); KETONES URINE 1+ (NEGATIVE); LEUKOCYTE ESTERASE URINE NEGATIVE (NEGATIVE); NITRITE URINE NEGATIVE (NEGATIVE); OCCULT BLOOD URINE 1+ (NEGATIVE); PH URINE 5.5 (4.5-8.0); PROTEIN URINE 3+ (NEGATIVE); SPECIFIC GRAVITY URINE 1.035 (1.005-1.030); UROBILINOGEN URINE 0.2 E.U./dL (0.2-1.0)
[2019-08-02 02:03] LABS: *AMPHETAMINES SCREEN URINE NEGATIVE (NEGATIVE); *BARBITURATES SCREEN URINE NEGATIVE (NEGATIVE); CANNABINOID URINE SCREEN NEGATIVE (NEGATIVE); PHENCYCLIDINE URINE SCREEN NEGATIVE (NEGATIVE)
[2019-08-02 02:04] LABS: *BENZODIAZEPINES SCREEN URINE NEGATIVE (NEGATIVE); *COCAINE SCREEN URINE NEGATIVE (NEGATIVE); METHADONE URINE SCREEN NEGATIVE (NEGATIVE)
[2019-08-02 02:22] LABS: OPIATES URINE SCREEN PRESUMTIVE POSITIVE (NEGATIVE)
[2019-08-02 02:30] LABS: NUCLEATED RED BLOOD CELLS 1 /100 WBC; PLATELET ESTIMATE NORMAL
[2019-08-02] MEDS ORDERED: ONDANSETRON HCL 4MG/2ML INJ IV PRN (06:15)
[2019-08-02] MEDS ORDERED: GUAIFENESIN 200MG/10ML SUGAR FREE UDC PO PRN (06:15)
[2019-08-02] MEDS ORDERED: NA PHOS,M-B/NA PHOS,DI-BA ENEMA 118ML PR PRN (06:15)
[2019-08-02] MEDS ORDERED: ACETAMINOPHEN 325MG TABLET PO PRN (06:15)
[2019-08-02] MEDS ORDERED: DOCUSATE SODIUM 100MG CAPSULE PO PRN (06:15)
[2019-08-02] MEDS ORDERED: HYDRALAZINE 20MG/ML VIAL IV PRN (06:15)
[2019-08-02] MEDS ORDERED: IPRATROPIUM/ALBUTEROL 0.5-3(2.5)MG/3ML NEB NEB PRN (06:15)
[2019-08-02] MEDS ORDERED: DIPHENHYDRAMINE 50MG/ML VIAL IV PRN (06:15)
[2019-08-02] MEDS ORDERED: CLONIDINE 0.1MG TABLET PO PRN (06:15)
[2019-08-02] MEDS ORDERED: DEXTROSE 50% WATER 50ML SYRINGE IV PRN (06:15)
[2019-08-02] MEDS ORDERED: MAGNESIUM/ALUMINUM HYDROXIDE/SIMETHICONE 30ML UDC PO PRN (06:15)
[2019-08-02] MEDS: HYDROCODONE/ACETAMINOPHEN 10/325MG TABLET PO PRN ×4 (06:50→23:27)
[2019-08-02] MEDS: BLOOD SUGAR DIAGNOSTIC STRIP TEST SCH ×4 (06:55→21:48)
[2019-08-02] MEDS: INSULIN LISPRO 100 UNITS/ML SUBCUT SCH ×4 (07:03→21:48)
[2019-08-02] MEDS: LORAZEPAM 2MG/ML CPJ IV PRN ×2 (07:07→20:22)
[2019-08-02] MEDS: CEFTRIAXONE 1 G PREMIX 50 ML IV SCH (10:13)
[2019-08-02] MEDS: ENOXAPARIN 40MG/0.4ML SYR SUBCUT SCH (10:13)
[2019-08-02] MEDS ORDERED: AMLODIPINE 10MG TABLET PO SCH (14:00)
[2019-08-02] MEDS: SODIUM CHLORIDE 0.9% INJ 3ML FLUSH IVF SCH ×2 (15:13→21:48)
[2019-08-02 17:10] LABS: CREATINE KINASE 36 IU/L (26-192)
[2019-08-02 17:11] LABS: CREATINE KINASE MB FRACTION < 1.0 ng/mL (0.5-3.6)
[2019-08-03] VITALS: BP 178/87
[2019-08-03 01:23] LABS: CREATINE KINASE 37 IU/L (26-192)
[2019-08-03 01:24] LABS: CREATINE KINASE MB FRACTION < 1.0 ng/mL (0.5-3.6)
[2019-08-03 04:00] VITALS: BP 141/75
[2019-08-03] MEDS: BLOOD SUGAR DIAGNOSTIC STRIP TEST SCH ×2 (06:22→12:01)
[2019-08-03] MEDS: SODIUM CHLORIDE 0.9% INJ 3ML FLUSH IVF SCH ×2 (06:28→15:30)
[2019-08-03] MEDS: INSULIN LISPRO 100 UNITS/ML SUBCUT SCH ×2 (06:29→12:17)
[2019-08-03] MEDS: HYDROCODONE/ACETAMINOPHEN 10/325MG TABLET PO PRN (06:37)
[2019-08-03 07:27] LABS: BASOPHILS % 0.7 % (0.0-2.0); EOSINOPHILS % 0.9 % (0.0-5.0); HEMATOCRIT. 32.5 % (36.0-48.0); LYMPHOCYTES % 24.1 % (20.0-50.0); MEAN CORPUSCULAR HEMOGLOBIN 29.7 pg (28.0-32.0); MEAN CORPUSCULAR VOLUME 87.3 fL (81.0-99.0); MEAN PLATELET VOLUME 8.7 fl (7.4-10.4); NEUTROPHILS % 69.3 % (40.0-76.0); PLATELET 248 x1000/uL (130-400); RED BLOOD CELL COUNT 3.72 mill/uL (4.2-5.4); RED CELL DISTRIBUTION WIDTH 14.8 % (11.6-14.6)
[2019-08-03 07:32] LABS: CHLORIDE 106 mEq/L (98-107)
[2019-08-03 07:54] LABS: T4 FREE 1.02 ng/dL (0.76-1.46)
[2019-08-03 07:55] LABS: HDL CHOLESTEROL 47 mg/dL (40-59); LDL CHOLESTEROL 159 mg/dL (5-100)
[2019-08-03 08:00] VITALS: BP 125/75
[2019-08-03] MEDS: CEFTRIAXONE 1 G PREMIX 50 ML IV SCH (08:22)
[2019-08-03] MEDS: ENOXAPARIN 40MG/0.4ML SYR SUBCUT SCH (08:23)
[2019-08-03] MEDS ORDERED: AMLODIPINE 10MG TABLET PO SCH (09:00)
[2019-08-03 12:00] VITALS: BP 158/75
[2019-08-03] MEDS ORDERED: MORPHINE SULFATE 2 MG/ML CPJ (NOT FOR IM USE) IV PRN (12:15)
[2019-08-03] MEDS: LORAZEPAM 2MG/ML CPJ IV PRN (15:30)
[2019-08-03 16:00] VITALS: BP 134/77
[2019-08-03 16:24] VITALS: BP 134/77
[2019-08-03] MEDS ORDERED: ENOXAPARIN 30MG/0.3ML SYR SUBCUT SCH (21:00)
== END 2019-08-03 17:15 | disposition home or self-care (01) | DRG 199 ==
LOC: ER 21:58 → CANRESERV 08-02 02:34 → ENRESERV 08-02 02:34 → ER 08-02 03:06 → 5WST 08-02 03:32
PROVIDERS: ADMIT Internal Medicine; ATTEND Internal Medicine
DX: I16.0 Hypertensive urgency (principal); R65.10 Systemic inflammatory response syndrome (SIRS) of non-infectious origin without acute organ dysfunction; I50.40 Unspecified combined systolic (congestive) and diastolic (congestive) heart failure; E11.65 Type 2 diabetes mellitus with hyperglycemia; E87.1 Hypo-osmolality and hyponatremia; G43.909 Migraine, unspecified, not intractable, without status migrainosus; I11.0 Hypertensive heart disease with heart failure; D72.829 Elevated white blood cell count, unspecified; E66.9 Obesity, unspecified; Z20.828 Contact with and (suspected) exposure to other viral communicable diseases; F12.90 Cannabis use, unspecified, uncomplicated; F17.210 Nicotine dependence, cigarettes, uncomplicated; M54.30 Sciatica, unspecified side; Z86.718 Personal history of other venous thrombosis and embolism; Z71.89 Other specified counseling; Z71.6 Tobacco abuse counseling; Z91.14 Patient's other noncompliance with medication regimen; M48.54XA Collapsed vertebra, not elsewhere classified, thoracic region, initial encounter for fracture; R10.9 Unspecified abdominal pain; K52.9 Noninfective gastroenteritis and colitis, unspecified; F15.90 Other stimulant use, unspecified, uncomplicated
CPT/HCPCS: 36415; 71045; 72110; 76700; 80053; 80061; 80305; 80320; 81003; 82010; 82550; 82553; 82962; 83605; 83880; 84439; 84443; 84484; 85025; 93306; 93970; 99291; J0360; J0696; J1650; J1815; J1885; J2060; J2270; J2405; J3490; J7030; G0480

== ENCOUNTER 2019-08-15 00:29 | Emergency (ER) | payer MEDICAID ==
[~2019-08-15] VITALS: Ht 170.2 cm; Wt 93.0 kg
[2019-08-15] MEDS ORDERED: TETANUS, DIPHTHERIA, PERTUSSIS VAC/PF 0.5ML (>7YR OLD) IM ONE (01:30)
[2019-08-15] MEDS ORDERED: LIDOCAINE HCL/EPINEPHRINE 1%-EPI 1:100,000 20 ML VIAL INFIL NR (01:30)
[2019-08-15] MEDS ORDERED: BACITRACIN ZINC OINT UDPKT TOP ONE (01:30)
[2019-08-15] MEDS ORDERED: LIDOCAINE 1%/EPI 1:100,000 10 ML VIAL IJ ONE (01:30)
[2019-08-15] MEDS ORDERED: IBUPROFEN 800MG TABLET PO ONE (02:30)
[2019-08-15] MEDS ORDERED: ACETAMINOPHEN 500MG TABLET PO ONE (02:30)
[2019-08-15] MEDS ORDERED: KETOROLAC 30MG/ML VIAL IV ONE (03:30)
[2019-08-15 03:50] VITALS: BP 114/63
== END 2019-08-15 03:54 | disposition home or self-care (01) ==
LOC: ER 00:29
DX: S61.216A Laceration without foreign body of right little finger without damage to nail, initial encounter (principal); X58.XXXA Exposure to other specified factors, initial encounter; Y93.89 Activity, other specified; Y92.89 Other specified places as the place of occurrence of the external cause; Y99.8 Other external cause status; E11.9 Type 2 diabetes mellitus without complications; I10 Essential (primary) hypertension; G43.909 Migraine, unspecified, not intractable, without status migrainosus; Z79.899 Other long term (current) drug therapy
CPT/HCPCS: 90471; 90715; 96374; 99284; J1885; J3490

== ENCOUNTER 2019-09-04 21:43 | Inpatient (IN) | payer MEDICAID ==
[~2019-09-04] VITALS: Ht 167.6 cm; Wt 93.4 kg
[2019-09-04] MEDS ORDERED: ONDANSETRON HCL 4MG/2ML INJ IV STA (23:05)
[2019-09-04] MEDS ORDERED: SODIUM CHLORIDE 0.9% 1,000 ML IV ONE (23:05)
[2019-09-04] MEDS ORDERED: METHOCARBAMOL 750MG TABLET PO SCH (23:15)
[2019-09-04] MEDS ORDERED: KETOROLAC 30MG/ML VIAL IV ONE (23:15)
[2019-09-04] MEDS ORDERED: LABETALOL 5MG/ML SYR 20 MG/4 ML SYRINGE IV ONE (23:30)
[2019-09-05 00:09] LABS: HEMATOCRIT. 34.2 % (36.0-48.0); HEMOGLOBIN. 11.5 g/dL (12.0-16.0); MEAN CORPUSCULAR HEMOGLOBIN 29.6 pg (28.0-32.0); MEAN CORPUSCULAR VOLUME 88.1 fL (81.0-99.0); MEAN PLATELET VOLUME 8.3 fl (7.4-10.4); PLATELET 273 x1000/uL (130-400); RED BLOOD CELL COUNT 3.88 mill/uL (4.2-5.4); RED CELL DISTRIBUTION WIDTH 15.1 % (11.6-14.6)
[2019-09-05 00:17] LABS: PROTHROMBIN TIME 10.8 sec (9.6-11.0)
[2019-09-05 00:18] LABS: CHLORIDE 99 mEq/L (98-107)
[2019-09-05 00:22] LABS: HCG SCREEN NEGATIVE
[2019-09-05] MEDS ORDERED: MORPHINE SULFATE 2 MG/ML CPJ (NOT FOR IM USE) IV SCH (00:45)
[2019-09-05] MEDS ORDERED: INSULIN LISPRO 100 UNITS/ML SUBCUT SCH (00:45)
[2019-09-05] MEDS ORDERED: METOCLOPRAMIDE HCL 10MG/2ML VIAL IV SCH (00:45)
[2019-09-05 02:28] LABS: PLATELET ESTIMATE NORMAL
[2019-09-05] MEDS ORDERED: CLONIDINE 0.2MG TABLET PO SCH (03:00)
[2019-09-05 05:47] LABS: CLARITY URINE CLEAR (CLEAR); COLOR URINE YELLOW (YELLOW); KETONES URINE 1+ (NEGATIVE); LEUKOCYTE ESTERASE URINE NEGATIVE (NEGATIVE); NITRITE URINE NEGATIVE (NEGATIVE); OCCULT BLOOD URINE 1+ (NEGATIVE); PROTEIN URINE 3+ (NEGATIVE); SPECIFIC GRAVITY URINE 1.039 (1.005-1.030); UROBILINOGEN URINE 0.2 E.U./dL (0.2-1.0)
[2019-09-05] MEDS: ACETAMINOPHEN 325MG TABLET PO PRN (06:25)
[2019-09-05 08:00] VITALS: BP 148/71
[2019-09-05] MEDS ORDERED: IPRATROPIUM/ALBUTEROL 0.5-3(2.5)MG/3ML NEB HHN PRN (08:45)
[2019-09-05] MEDS ORDERED: ONDANSETRON HCL 4MG/2ML INJ IV PRN (08:45)
[2019-09-05] MEDS ORDERED: ENOXAPARIN 40MG/0.4ML SYR SUBCUT SCH (08:45)
[2019-09-05] MEDS ORDERED: CLONIDINE 0.1MG TABLET PO PRN (08:45)
[2019-09-05] MEDS ORDERED: DIPHENHYDRAMINE 50MG/ML VIAL IV PRN (08:45)
[2019-09-05] MEDS: MORPHINE SULFATE 2 MG/ML CPJ (NOT FOR IM USE) IV PRN ×3 (09:59→21:43)
[2019-09-05 10:23] VITALS: BP 148/71
[2019-09-05] MEDS ORDERED: PNEUMOCOCCAL 23-VAL P-SAC VAC 0.5 ML IM ONE (11:00)
[2019-09-05] MEDS: ENOXAPARIN 30MG/0.3ML SYR SUBCUT SCH ×2 (11:31→20:31)
[2019-09-05 12:00] VITALS: BP 139/75
[2019-09-05] MEDS ORDERED: DEXTROSE 50% WATER 50ML SYRINGE IV PRN (15:15)
[2019-09-05 16:00] VITALS: BP 153/75
[2019-09-05] MEDS: BLOOD SUGAR DIAGNOSTIC STRIP TEST SCH ×2 (17:22→20:31)
[2019-09-05 17:26] LABS: PHOSPHORUS 3.8 mg/dL (2.5-4.9)
[2019-09-05] MEDS: INSULIN LISPRO 100 UNITS/ML SUBCUT SCH ×2 (17:51→20:34)
[2019-09-05 20:22] VITALS: BP 114/67
[2019-09-06] VITALS: BP 94/43
[2019-09-06] MEDS: MORPHINE SULFATE 2 MG/ML CPJ (NOT FOR IM USE) IV PRN ×5 (02:56→23:10)
[2019-09-06 04:00] VITALS: BP 142/66
[2019-09-06 06:21] LABS: CHLORIDE 101 mEq/L (98-107)
[2019-09-06 06:30] LABS: LDL CHOLESTEROL 158 mg/dL (5-100)
[2019-09-06 06:32] LABS: HDL CHOLESTEROL 42 mg/dL (40-59)
[2019-09-06 06:35] LABS: BASOPHILS % 0.5 % (0.0-2.0); EOSINOPHILS % 1.1 % (0.0-5.0); HEMATOCRIT. 27.9 % (36.0-48.0); HEMOGLOBIN. 9.4 g/dL (12.0-16.0); LYMPHOCYTES % 30.8 % (20.0-50.0); MEAN CORPUSCULAR HEMOGLOBIN 29.6 pg (28.0-32.0); MEAN CORPUSCULAR VOLUME 88.5 fL (81.0-99.0); MEAN PLATELET VOLUME 8.6 fl (7.4-10.4); MONOCYTES % 5.5 % (2.0-8.0); NEUTROPHILS % 62.1 % (40.0-76.0); PLATELET 260 x1000/uL (130-400); RED BLOOD CELL COUNT 3.15 mill/uL (4.2-5.4); RED CELL DISTRIBUTION WIDTH 15.1 % (11.6-14.6)
[2019-09-06] MEDS: BLOOD SUGAR DIAGNOSTIC STRIP TEST SCH ×4 (07:20→21:00)
[2019-09-06 08:29] VITALS: BP 161/82
[2019-09-06] MEDS: INSULIN LISPRO 100 UNITS/ML SUBCUT SCH ×4 (09:00→21:40)
[2019-09-06] MEDS: ENOXAPARIN 30MG/0.3ML SYR SUBCUT SCH ×2 (09:00→23:06)
[2019-09-06] MEDS: BENAZEPRIL 10MG TABLET PO SCH (09:57)
[2019-09-06 11:30] VITALS: BP 169/99
[2019-09-06] MEDS: GABAPENTIN 400MG CAPSULE PO SCH ×2 (13:36→21:41)
[2019-09-06] MEDS: INSULIN GLARGINE UD 100 UNITS/ML SYR SUBCUT SCH ×2 (13:46→21:41)
[2019-09-06 16:39] VITALS: BP 159/87
[2019-09-06] MEDS ORDERED: METFORMIN HCL 500MG TABLET PO SCH (17:50)
[2019-09-06 20:00] VITALS: BP 144/66
[2019-09-06] MEDS: ATORVASTATIN CALCIUM 20MG TABLET PO SCH (20:57)
[2019-09-07] VITALS: BP 156/65
[2019-09-07] MEDS: MORPHINE SULFATE 2 MG/ML CPJ (NOT FOR IM USE) IV PRN ×4 (02:30→12:00)
[2019-09-07 04:00] VITALS: BP 155/78
[2019-09-07] MEDS: GABAPENTIN 400MG CAPSULE PO SCH ×3 (05:52→21:18)
[2019-09-07] MEDS: BLOOD SUGAR DIAGNOSTIC STRIP TEST SCH ×4 (05:56→21:00)
[2019-09-07 07:08] LABS: BASOPHILS % 0.5 % (0.0-2.0); EOSINOPHILS % 1.5 % (0.0-5.0); HEMATOCRIT. 27.6 % (36.0-48.0); HEMOGLOBIN. 9.4 g/dL (12.0-16.0); LYMPHOCYTES % 26.3 % (20.0-50.0); MEAN CORPUSCULAR VOLUME 88.4 fL (81.0-99.0); MEAN PLATELET VOLUME 8.4 fl (7.4-10.4); MONOCYTES % 6.7 % (2.0-8.0); PLATELET 268 x1000/uL (130-400); RED BLOOD CELL COUNT 3.13 mill/uL (4.2-5.4); RED CELL DISTRIBUTION WIDTH 14.9 % (11.6-14.6)
[2019-09-07] MEDS: INSULIN LISPRO 100 UNITS/ML SUBCUT SCH ×4 (07:50→21:20)
[2019-09-07 08:00] VITALS: BP 143/63
[2019-09-07] MEDS: ENOXAPARIN 30MG/0.3ML SYR SUBCUT SCH (08:58)
[2019-09-07] MEDS: BENAZEPRIL 10MG TABLET PO SCH (08:59)
[2019-09-07] MEDS: INSULIN GLARGINE UD 100 UNITS/ML SYR SUBCUT SCH ×2 (09:02→22:09)
[2019-09-07 12:00] VITALS: BP 147/61
[2019-09-07] MEDS: DEXAMETHASONE 4MG/ML 1ML VIAL IV SCH ×2 (12:00→18:03)
[2019-09-07] MEDS ORDERED: LACTULOSE 20G/30ML UDC PO NR (14:00)
[2019-09-07] MEDS: HYDROMORPHONE HCL/PF 2MG/ML CPJ IV PRN ×2 (14:11→21:19)
[2019-09-07 16:00] VITALS: BP 131/65
[2019-09-07] MEDS: HYDROCODONE/ACETAMINOPHEN 5/325MG TABLET PO PRN ×2 (16:02→22:20)
[2019-09-07] MEDS: ATORVASTATIN CALCIUM 20MG TABLET PO SCH (21:18)
[2019-09-08] VITALS: BP 120/76
[2019-09-08] MEDS: HYDROCODONE/ACETAMINOPHEN 5/325MG TABLET PO PRN ×2 (03:14→08:31)
[2019-09-08 04:00] VITALS: BP 154/77
[2019-09-08] MEDS: HYDROMORPHONE HCL/PF 2MG/ML CPJ IV PRN ×3 (04:24→16:55)
[2019-09-08 05:30] VITALS: BP 154/77
[2019-09-08] MEDS: GABAPENTIN 400MG CAPSULE PO SCH ×3 (06:00→21:01)
[2019-09-08] MEDS: DEXAMETHASONE 4MG/ML 1ML VIAL IV SCH ×3 (06:01→12:00)
[2019-09-08] MEDS: BLOOD SUGAR DIAGNOSTIC STRIP TEST SCH ×4 (06:53→21:01)
[2019-09-08 06:55] LABS: BASOPHILS % 0.1 % (0.0-2.0); HEMATOCRIT. 29.4 % (36.0-48.0); HEMOGLOBIN. 9.9 g/dL (12.0-16.0); LYMPHOCYTES % 7.2 % (20.0-50.0); MEAN CORPUSCULAR VOLUME 88.6 fL (81.0-99.0); MEAN PLATELET VOLUME 8.7 fl (7.4-10.4); MONOCYTES % 3.6 % (2.0-8.0); NEUTROPHILS % 89.1 % (40.0-76.0); PLATELET 283 x1000/uL (130-400); RED BLOOD CELL COUNT 3.32 mill/uL (4.2-5.4)
[2019-09-08] MEDS ORDERED: THROMBIN (BOVINE) 5000 UNITS/VIAL TOP ONE (07:28)
[2019-09-08] MEDS ORDERED: NORMAL SALINE 0.9% 10 ML SYR ONE (07:28)
[2019-09-08] MEDS ORDERED: LIDOCAINE HCL/EPINEPHRINE 1%-EPI 1:100,000 20 ML VIAL ONE (07:29)
[2019-09-08] MEDS ORDERED: BACITRACIN 50,000 UNITS/VIAL ONE (07:29)
[2019-09-08 08:00] VITALS: BP 144/63
[2019-09-08] MEDS: BENAZEPRIL 10MG TABLET PO SCH (08:32)
[2019-09-08] MEDS: INSULIN LISPRO 100 UNITS/ML SUBCUT SCH ×4 (08:38→21:04)
[2019-09-08] MEDS ORDERED: NEOSTIGMINE METHYLSULFATE 1MG/ML 10 ML VIAL ONE (09:10)
[2019-09-08] MEDS ORDERED: ROCURONIUM BROMIDE 10MG/ML VIAL 5ML IV ONE (09:10)
[2019-09-08] MEDS ORDERED: FENTANYL CITRATE/PF 50MCG/ML 2ML VIAL ONE (09:10)
[2019-09-08] MEDS ORDERED: MIDAZOLAM HCL 2 MG/2 ML VIAL ONE (09:11)
[2019-09-08] MEDS ORDERED: PROPOFOL 200MG/20ML VIAL IV ONE (09:11)
[2019-09-08] MEDS ORDERED: GLYCOPYRROLATE 0.2 MG/ML 2ML VIAL ONE (09:11)
[2019-09-08] MEDS ORDERED: DEXAMETHASONE 4MG/ML 1ML VIAL ONE (09:24)
[2019-09-08] MEDS ORDERED: ONDANSETRON HCL 4MG/2ML INJ ONE (09:24)
[2019-09-08] MEDS ORDERED: HYDROMORPHONE HCL/PF 2MG/ML (OR) ONE (09:24)
[2019-09-08] MEDS ORDERED: LABETALOL 5MG/ML SYR 20 MG/4 ML SYRINGE IV PRN (09:30)
[2019-09-08] MEDS ORDERED: ONDANSETRON HCL 4MG/2ML INJ IV PRN (09:30)
[2019-09-08] MEDS ORDERED: MEPERIDINE HCL/PF 25MG/ML CPJ IV PRN (09:30)
[2019-09-08] MEDS: INSULIN GLARGINE UD 100 UNITS/ML SYR SUBCUT SCH ×2 (10:00→21:04)
[2019-09-08] MEDS ORDERED: MORPHINE SULFATE 4 MG/ML CPJ (NOT FOR IM USE) IV PRN (11:15)
[2019-09-08] MEDS ORDERED: HYDRALAZINE 20MG/ML VIAL IV PRN (11:15)
[2019-09-08] MEDS ORDERED: NALOXONE INJ IV PRN (12:00)
[2019-09-08] MEDS ORDERED: ONDANSETRON INJ IV PRN (12:00)
[2019-09-08] MEDS ORDERED: DIPHENHYDRAMINE INJ IV PRN (12:00)
[2019-09-08] MEDS: HYDROMORPHONE PCA 10MG/50ML IV PRN (12:54)
[2019-09-08] MEDS ORDERED: CEFAZOLIN SODIUM 1000MG/VIAL IV SCH (14:00)
[2019-09-08] MEDS: DEXT 5%/LACTATED RINGERS 1,000 ML IV SCH ×2 (14:27→21:05)
[2019-09-08] MEDS: CEFAZOLIN 1000MG PREMIX 50 ML IV SCH ×2 (14:27→21:01)
[2019-09-08 16:00] VITALS: BP 152/73
[2019-09-08] MEDS ORDERED: THROAT LOZENGES-BENZOCAINE/MENTH/CETYLPYRD CL LOZENGES MM PRN (18:45)
[2019-09-08] MEDS ORDERED: IPRATROPIUM/ALBUTEROL 0.5-3(2.5)MG/3ML NEB HHN PRN (19:00)
[2019-09-08 20:00] VITALS: BP 129/58
[2019-09-08] MEDS: GUAIFENESIN 600MG ER TABLET PO SCH (21:00)
[2019-09-08] MEDS: ATORVASTATIN CALCIUM 20MG TABLET PO SCH (21:00)
[2019-09-08] MEDS: ACETAMINOPHEN 325MG TABLET PO PRN (21:20)
[2019-09-09 03:45] VITALS: BP 135/68
[2019-09-09] MEDS: GABAPENTIN 400MG CAPSULE PO SCH ×2 (05:12→14:16)
[2019-09-09] MEDS: CEFAZOLIN 1000MG PREMIX 50 ML IV SCH ×2 (06:05→14:21)
[2019-09-09 06:30] LABS: BASOPHILS % 0.1 % (0.0-2.0); HEMATOCRIT. 27.7 % (36.0-48.0); HEMOGLOBIN. 9.2 g/dL (12.0-16.0); LYMPHOCYTES % 15.8 % (20.0-50.0); MEAN CORPUSCULAR HEMOGLOBIN 30.1 pg (28.0-32.0); MEAN CORPUSCULAR VOLUME 90.7 fL (81.0-99.0); MEAN PLATELET VOLUME 8.6 fl (7.4-10.4); MONOCYTES % 5.6 % (2.0-8.0); NEUTROPHILS % 78.5 % (40.0-76.0); PLATELET 299 x1000/uL (130-400); RED BLOOD CELL COUNT 3.05 mill/uL (4.2-5.4); RED CELL DISTRIBUTION WIDTH 15.6 % (11.6-14.6)
[2019-09-09] MEDS: BLOOD SUGAR DIAGNOSTIC STRIP TEST SCH ×2 (06:42→12:39)
[2019-09-09] MEDS: INSULIN LISPRO 100 UNITS/ML SUBCUT SCH ×2 (07:50→12:39)
[2019-09-09 08:00] VITALS: BP 169/75
[2019-09-09] MEDS: DEXT 5%/LACTATED RINGERS 1,000 ML IV SCH ×2 (08:00→12:00)
[2019-09-09] MEDS: GUAIFENESIN 600MG ER TABLET PO SCH (09:12)
[2019-09-09] MEDS: BENAZEPRIL 10MG TABLET PO SCH (09:22)
[2019-09-09] MEDS: INSULIN GLARGINE UD 100 UNITS/ML SYR SUBCUT SCH (09:26)
[2019-09-09] MEDS: HYDROMORPHONE PCA 10MG/50ML IV PRN (09:31)
[2019-09-09] MEDS ORDERED: HYDROCODONE/ACETAMINOPHEN 5/325MG TABLET PO PRN (11:00)
[2019-09-09 12:00] VITALS: BP 111/57
[2019-09-09] MEDS ORDERED: HYDROCODONE/ACETAMINOPHEN 10/325MG TABLET PO PRN (12:30)
[2019-09-09] MEDS ORDERED: HYDR-4009 MT ×2 (15:54→15:57)
[2019-09-09] MEDS ORDERED: BENA10TA74 PO (15:54)
[2019-09-09 16:51] VITALS: BP 112/55
== END 2019-09-09 17:45 | disposition home or self-care (01) | DRG 23 ==
LOC: ER 21:43 → 6WST 09-05 00:50 → ENRESERV 09-05 07:32 → 6EST 09-08 14:01 → 6WST 09-08 14:58
PROVIDERS: ADMIT Internal Medicine; ATTEND Internal Medicine
PROC: 0SB40ZZ Excision of Lumbosacral Disc, Open Approach (ICD-10-PCS; principal; 2019-09-08)
PROC: 01NB0ZZ Release Lumbar Nerve, Open Approach (ICD-10-PCS; 2019-09-08)
PROC: 01NR0ZZ Release Sacral Nerve, Open Approach (ICD-10-PCS; 2019-09-08)
DX: E11.43 Type 2 diabetes mellitus with diabetic autonomic (poly)neuropathy (principal); I16.1 Hypertensive emergency; M51.16 Intervertebral disc disorders with radiculopathy, lumbar region; M48.061 Spinal stenosis, lumbar region without neurogenic claudication; E11.42 Type 2 diabetes mellitus with diabetic polyneuropathy; K21.9 Gastro-esophageal reflux disease without esophagitis; K31.84 Gastroparesis; I10 Essential (primary) hypertension; F17.210 Nicotine dependence, cigarettes, uncomplicated; E66.9 Obesity, unspecified; M51.17 Intervertebral disc disorders with radiculopathy, lumbosacral region; E11.65 Type 2 diabetes mellitus with hyperglycemia; G82.20 Paraplegia, unspecified; G43.909 Migraine, unspecified, not intractable, without status migrainosus; M51.26 Other intervertebral disc displacement, lumbar region; E78.5 Hyperlipidemia, unspecified; T46.5X6A Underdosing of other antihypertensive drugs, initial encounter; Z79.899 Other long term (current) drug therapy; Z68.33 Body mass index [BMI] 33.0-33.9, adult; Z71.3 Dietary counseling and surveillance; Z71.6 Tobacco abuse counseling; Z91.128 Patient's intentional underdosing of medication regimen for other reason; Y92.89 Other specified places as the place of occurrence of the external cause; Z03.818 Encounter for observation for suspected exposure to other biological agents ruled out; E43 Unspecified severe protein-calorie malnutrition
CPT/HCPCS: 36415; 71045; 72100; 72148; 76000; 80048; 80053; 80061; 81003; 82962; 83036; 83735; 83880; 84100; 84443; 84484; 84703; 85025; 86850; 86900; 88311; 90732; 93005; 93970; 95863; 95925; 95926; 95928; 95929; 95940; 97116; 97162; 97164; 97760; 99291; J0690; J1100; J1170; J1200; J1650; J1815; J1885; J2175; J2250; J2270; J2405; J2704; J2710; J2765; J3010; J3490; J7030; J7121; U0003-CS

== ENCOUNTER 2019-09-28 13:30 | Emergency (ER) | payer MEDICAID ==
[~2019-09-28] VITALS: Ht 172.7 cm; Wt 73.0 kg
[~2019-09-28 13:30] MED LIST changes: +HYDR-4009 MT; -INSU100I24 SQ; -LEVO750T21 MT; -SULF1TAB48 MT
[2019-09-28] MEDS ORDERED: MORPHINE SULFATE 4 MG/ML CPJ (NOT FOR IM USE) IV STA (14:44)
[2019-09-28] MEDS ORDERED: ONDANSETRON HCL 4MG/2ML INJ IV STA (14:44)
[2019-09-28] MEDS ORDERED: SODIUM CHLORIDE 0.9% 1,000 ML IV ONE (14:44)
[2019-09-28 15:02] LABS: BASOPHILS % 0.3 % (0.0-2.0); EOSINOPHILS % 0.1 % (0.0-5.0); HEMATOCRIT. 34.5 % (36.0-48.0); HEMOGLOBIN. 11.7 g/dL (12.0-16.0); LYMPHOCYTES % 8.1 % (20.0-50.0); MEAN CORPUSCULAR HEMOGLOBIN 30.3 pg (28.0-32.0); MEAN CORPUSCULAR VOLUME 89.4 fL (81.0-99.0); MEAN PLATELET VOLUME 8.4 fl (7.4-10.4); MONOCYTES % 2.2 % (2.0-8.0); NEUTROPHILS % 89.3 % (40.0-76.0); PLATELET 395 x1000/uL (130-400); RED BLOOD CELL COUNT 3.86 mill/uL (4.2-5.4); RED CELL DISTRIBUTION WIDTH 14.2 % (11.6-14.6)
[2019-09-28 15:04] LABS: CHLORIDE 100 mEq/L (98-107)
[2019-09-28 15:04] LABS: CLARITY URINE CLEAR (CLEAR); COLOR URINE YELLOW (YELLOW); KETONES URINE 1+ (NEGATIVE); LEUKOCYTE ESTERASE URINE NEGATIVE (NEGATIVE); NITRITE URINE NEGATIVE (NEGATIVE); OCCULT BLOOD URINE 1+ (NEGATIVE); PH URINE 7.5 (4.5-8.0); PROTEIN URINE 4+ (NEGATIVE); SPECIFIC GRAVITY URINE 1.027 (1.005-1.030)
[2019-09-28 15:12] LABS: PARTIAL THROMBOPLASTIN TIME 23.9 sec (23.4-31.0); PROTHROMBIN TIME 10.5 sec (9.6-11.0)
[2019-09-28 15:22] LABS: HCG SCREEN NEGATIVE
[2019-09-28] MEDS ORDERED: INSULIN REGULAR (HUMULIN R) UD 100 UNITS/ML SYR SUBCUT ONE (15:30)
[2019-09-28] MEDS ORDERED: INSULIN REGULAR (HUMULIN R) 300UNITS/3ML SUBCUT NR (15:30)
[2019-09-28] MEDS ORDERED: CEFTRIAXONE 1 G PREMIX 50 ML IV ONE (15:45)
[2019-09-28] MEDS ORDERED: KETOROLAC 15MG/ML VIAL IV ONE (17:00)
[2019-09-28 17:01] VITALS: BP 177/75
== END 2019-09-28 17:36 | disposition home or self-care (01) ==
LOC: ER 13:32
DX: M54.9 Dorsalgia, unspecified (principal); N39.0 Urinary tract infection, site not specified; R11.2 Nausea with vomiting, unspecified; E11.9 Type 2 diabetes mellitus without complications; I10 Essential (primary) hypertension; G43.909 Migraine, unspecified, not intractable, without status migrainosus; Z79.899 Other long term (current) drug therapy
CPT/HCPCS: 36415; 71045; 72100; 80053; 81003; 82962; 84703; 85025; 85610; 85730; 87086; 93005; 96361; 96365; 96372; 96375; 99285; J0696; J1815; J1885; J2270; J2405; J7030

== ENCOUNTER 2019-09-30 13:13 | Inpatient (IN) | payer MEDICAID ==
[~2019-09-30] VITALS: Ht 170.2 cm; Wt 88.9 kg
[2019-09-30] MEDS ORDERED: MORPHINE SULFATE 4 MG/ML CPJ (NOT FOR IM USE) IV STA (14:24)
[2019-09-30 15:02] LABS: BASOPHILS % 0.8 % (0.0-2.0); EOSINOPHILS % 0.1 % (0.0-5.0); HEMATOCRIT. 29.7 % (36.0-48.0); HEMOGLOBIN. 9.9 g/dL (12.0-16.0); LYMPHOCYTES % 13.1 % (20.0-50.0); MEAN CORPUSCULAR HEMOGLOBIN 29.6 pg (28.0-32.0); PLATELET 337 x1000/uL (130-400); RED BLOOD CELL COUNT 3.34 mill/uL (4.2-5.4); RED CELL DISTRIBUTION WIDTH 14.5 % (11.6-14.6)
[2019-09-30 15:08] LABS: CHLORIDE 96 mEq/L (98-107)
[2019-09-30] MEDS ORDERED: MORPHINE SULFATE 4 MG/ML CPJ (NOT FOR IM USE) IV ONE (15:45)
[2019-09-30] MEDS ORDERED: MORPHINE SULFATE 2 MG/ML CPJ (NOT FOR IM USE) IV PRN (17:45)
[2019-09-30] MEDS ORDERED: DEXTROSE 50% WATER 50ML SYRINGE IV PRN (17:45)
[2019-09-30] MEDS ORDERED: ACETAMINOPHEN 325MG TABLET PO PRN (17:45)
[2019-09-30] MEDS ORDERED: IPRATROPIUM/ALBUTEROL 0.5-3(2.5)MG/3ML NEB NEB PRN (17:45)
[2019-09-30] MEDS ORDERED: MAGNESIUM/ALUMINUM HYDROXIDE/SIMETHICONE 30ML UDC PO PRN (17:45)
[2019-09-30] MEDS ORDERED: HYDRALAZINE 20MG/ML VIAL IV PRN (17:45)
[2019-09-30] MEDS ORDERED: ONDANSETRON HCL 4MG/2ML INJ IV PRN (17:45)
[2019-09-30] MEDS ORDERED: CLONIDINE 0.1MG TABLET PO PRN (17:45)
[2019-09-30] MEDS ORDERED: DIPHENHYDRAMINE 50MG/ML VIAL IV PRN (17:45)
[2019-09-30] MEDS ORDERED: LORAZEPAM 2MG/ML CPJ IV PRN (17:45)
[2019-09-30] MEDS ORDERED: HYDROCODONE/ACETAMINOPHEN 10/325MG TABLET PO PRN (17:45)
[2019-09-30] MEDS ORDERED: GUAIFENESIN 200MG/10ML SUGAR FREE UDC PO PRN (17:45)
[2019-09-30] MEDS ORDERED: DOCUSATE SODIUM 100MG CAPSULE PO PRN (17:45)
[2019-09-30] MEDS ORDERED: LEVOFLOXACIN 500MG PREMIX 100 ML IV SCH (18:00)
[2019-09-30] MEDS: ENOXAPARIN 40MG/0.4ML SYR SUBCUT SCH (18:55)
[2019-09-30] MEDS: SODIUM CHLORIDE 0.45% 1,000 ML IV SCH ×2 (18:55→22:15)
[2019-09-30] MEDS: INSULIN LISPRO 100 UNITS/ML SUBCUT SCH ×2 (19:04→22:17)
[2019-09-30 21:00] VITALS: BP 164/67
[2019-09-30] MEDS: BLOOD SUGAR DIAGNOSTIC STRIP TEST SCH (21:15)
[2019-09-30] MEDS ORDERED: INSU100I24 SQ (21:23)
[2019-09-30] MEDS ORDERED: GABA800T97 PO (21:25)
[2019-09-30] MEDS ORDERED: AMLO-78 PO (21:26)
[2019-09-30] MEDS: HYDROMORPHONE HCL/PF 2MG/ML CPJ IV PRN (22:19)
[2019-09-30] MEDS: SODIUM CHLORIDE 0.9% INJ 3ML FLUSH IVF SCH (22:19)
[2019-10-01] VITALS: BP 94/52
[2019-10-01 00:27] LABS: CREATINE KINASE 30 IU/L (26-192); CREATINE KINASE MB FRACTION < 1.0 ng/mL (0.5-3.6)
[2019-10-01] MEDS: SODIUM CHLORIDE 0.45% 1,000 ML IV SCH (00:33)
[2019-10-01 03:42] VITALS: BP 98/51
[2019-10-01] MEDS: HYDROMORPHONE HCL/PF 2MG/ML CPJ IV PRN ×5 (03:48→22:51)
[2019-10-01] MEDS: SODIUM CHLORIDE 0.9% INJ 3ML FLUSH IVF SCH ×3 (06:35→22:59)
[2019-10-01] MEDS: BLOOD SUGAR DIAGNOSTIC STRIP TEST SCH ×4 (06:36→19:20)
[2019-10-01] MEDS: INSULIN LISPRO 100 UNITS/ML SUBCUT SCH ×4 (06:37→23:00)
[2019-10-01 08:00] VITALS: BP 118/51
[2019-10-01 08:28] LABS: CHLORIDE 97 mEq/L (98-107)
[2019-10-01 08:37] LABS: BASOPHILS % 0.6 % (0.0-2.0); HEMATOCRIT. 26.9 % (36.0-48.0); HEMOGLOBIN. 9.3 g/dL (12.0-16.0); LYMPHOCYTES % 27.1 % (20.0-50.0); MEAN CORPUSCULAR HEMOGLOBIN 30.6 pg (28.0-32.0); MEAN CORPUSCULAR VOLUME 88.9 fL (81.0-99.0); MEAN PLATELET VOLUME 8.4 fl (7.4-10.4); MONOCYTES % 6.1 % (2.0-8.0); NEUTROPHILS % 64.2 % (40.0-76.0); PLATELET 297 x1000/uL (130-400); RED BLOOD CELL COUNT 3.02 mill/uL (4.2-5.4); RED CELL DISTRIBUTION WIDTH 14.4 % (11.6-14.6)
[2019-10-01 08:45] LABS: CREATINE KINASE 28 IU/L (26-192)
[2019-10-01 08:47] LABS: CREATINE KINASE MB FRACTION < 1.0 ng/mL (0.5-3.6)
[2019-10-01] MEDS: ASPIRIN 81MG EC TABLET PO SCH (09:12)
[2019-10-01 09:14] LABS: T4 FREE 1.43 ng/dL (0.76-1.46)
[2019-10-01 12:00] VITALS: BP 120/64
[2019-10-01 16:11] VITALS: BP 118/63
[2019-10-01 16:23] LABS: CREATINE KINASE 34 IU/L (26-192)
[2019-10-01] MEDS: SODIUM CHLORIDE 0.9% 1,000 ML IV SCH (16:26)
[2019-10-01] MEDS ORDERED: LEVOFLOXACIN 250MG PREMIX 50 ML IV SCH (18:00)
[2019-10-01] MEDS: ENOXAPARIN 40MG/0.4ML SYR SUBCUT SCH (18:27)
[2019-10-01 20:00] VITALS: BP 125/68
[2019-10-02] VITALS: BP 101/58
[2019-10-02] MEDS: SODIUM CHLORIDE 0.9% 1,000 ML IV SCH ×2 (00:50→12:26)
[2019-10-02] MEDS: HYDROMORPHONE HCL/PF 2MG/ML CPJ IV PRN ×4 (02:55→15:12)
[2019-10-02 04:00] VITALS: BP 123/57
[2019-10-02] MEDS: BLOOD SUGAR DIAGNOSTIC STRIP TEST SCH ×2 (06:55→12:10)
[2019-10-02] MEDS: SODIUM CHLORIDE 0.9% INJ 3ML FLUSH IVF SCH ×2 (06:55→15:11)
[2019-10-02 08:00] VITALS: BP 142/66
[2019-10-02] MEDS: INSULIN LISPRO 100 UNITS/ML SUBCUT SCH ×2 (08:31→12:20)
[2019-10-02] MEDS: ASPIRIN 81MG EC TABLET PO SCH (08:32)
[2019-10-02 12:00] VITALS: BP 141/70
[2019-10-02 13:00] LABS: BASOPHILS % 0.5 % (0.0-2.0); HEMATOCRIT. 26.7 % (36.0-48.0); HEMOGLOBIN. 9.4 g/dL (12.0-16.0); LYMPHOCYTES % 17.9 % (20.0-50.0); MEAN CORPUSCULAR HEMOGLOBIN 31.2 pg (28.0-32.0); MEAN CORPUSCULAR VOLUME 89.1 fL (81.0-99.0); MEAN PLATELET VOLUME 8.3 fl (7.4-10.4); NEUTROPHILS % 71.6 % (40.0-76.0); PLATELET 278 x1000/uL (130-400); RED BLOOD CELL COUNT 2.99 mill/uL (4.2-5.4); RED CELL DISTRIBUTION WIDTH 14.5 % (11.6-14.6)
[2019-10-02 13:53] VITALS: BP 141/70
[2019-10-02 15:12] VITALS: BP 141/70
[2019-10-02 15:43] LABS: CLARITY URINE CLEAR (CLEAR); COLOR URINE YELLOW (YELLOW); KETONES URINE NEGATIVE (NEGATIVE); LEUKOCYTE ESTERASE URINE NEGATIVE (NEGATIVE); NITRITE URINE NEGATIVE (NEGATIVE); OCCULT BLOOD URINE TRACE (NEGATIVE); PROTEIN URINE 2+ (NEGATIVE); SPECIFIC GRAVITY URINE 1.018 (1.005-1.030)
[2019-10-03 15:08] LABS: ANTI-NUCLEAR ANTIBODIES DIRECT Negative (Negative)
== END 2019-10-02 15:50 | disposition home or self-care (01) | DRG 469 ==
LOC: ER 13:13 → 8WST 16:20 → EDBEDREQSVC 18:14 → ENRESERV 19:23
PROVIDERS: ADMIT Internal Medicine; ATTEND Internal Medicine
DX: N17.9 Acute kidney failure, unspecified (principal); R55 Syncope and collapse; E86.0 Dehydration; G93.41 Metabolic encephalopathy; D64.9 Anemia, unspecified; E46 Unspecified protein-calorie malnutrition; E78.5 Hyperlipidemia, unspecified; I10 Essential (primary) hypertension; E11.40 Type 2 diabetes mellitus with diabetic neuropathy, unspecified; M54.30 Sciatica, unspecified side; R65.10 Systemic inflammatory response syndrome (SIRS) of non-infectious origin without acute organ dysfunction; F16.11 Hallucinogen abuse, in remission; G43.909 Migraine, unspecified, not intractable, without status migrainosus; Z79.891 Long term (current) use of opiate analgesic; Z87.891 Personal history of nicotine dependence; Z98.1 Arthrodesis status; Z79.899 Other long term (current) drug therapy; Z79.4 Long term (current) use of insulin; Z79.84 Long term (current) use of oral hypoglycemic drugs; Z68.30 Body mass index [BMI] 30.0-30.9, adult
CPT/HCPCS: 36415; 71045; 72100; 76770; 78580; 80048; 80053; 80061; 81003; 82550; 82553; 82962; 83036; 83880; 84439; 84443; 84484; 85025; 85379; 86038; 86160; 93005; 93306; 93970; 96365; 99285; J1170; J1650; J1815; J1956; J2270; J7030

== ENCOUNTER 2019-10-06 08:02 | Emergency (ER) | payer MEDICAID ==
[~2019-10-06] VITALS: Ht 170.2 cm; Wt 88.5 kg
[~2019-10-06 08:02] MED LIST changes: +AMLO-78 PO; -BENA10TA74 PO; -GABA-290 PO; +GABA800T97 PO; +INSU100I24 SQ; -LANTUSUD SUBCUT; -METF-416 PO
[2019-10-06] MEDS ORDERED: LORAZEPAM 2MG/ML CPJ IV ONE (10:30)
[2019-10-06] MEDS ORDERED: SODIUM CHLORIDE 0.9% 1,000 ML IV ONE (10:33)
[2019-10-06 11:01] LABS: CLARITY URINE CLOUDY (CLEAR); COLOR URINE YELLOW (YELLOW); KETONES URINE 1+ (NEGATIVE); LEUKOCYTE ESTERASE URINE NEGATIVE (NEGATIVE); NITRITE URINE NEGATIVE (NEGATIVE); OCCULT BLOOD URINE 2+ (NEGATIVE); PH URINE 5.5 (4.5-8.0); PROTEIN URINE 3+ (NEGATIVE); SPECIFIC GRAVITY URINE 1.024 (1.005-1.030); UROBILINOGEN URINE 0.2 E.U./dL (0.2-1.0)
[2019-10-06] MEDS ORDERED: HYDROCODONE/ACETAMINOPHEN 5/325MG TABLET PO ONE (11:15)
[2019-10-06] MEDS ORDERED: MORPHINE SULFATE 2 MG/ML CPJ (NOT FOR IM USE) IV ONE (11:30)
[2019-10-06 11:43] LABS: *BARBITURATES SCREEN URINE NEGATIVE (NEGATIVE); *COCAINE SCREEN URINE NEGATIVE (NEGATIVE)
[2019-10-06 11:44] LABS: *AMPHETAMINES SCREEN URINE NEGATIVE (NEGATIVE); *BENZODIAZEPINES SCREEN URINE NEGATIVE (NEGATIVE); METHADONE URINE SCREEN NEGATIVE (NEGATIVE)
[2019-10-06 11:45] LABS: CANNABINOID URINE SCREEN NEGATIVE (NEGATIVE)
[2019-10-06 11:45] LABS: BASOPHILS % 0.5 % (0.0-2.0); EOSINOPHILS % 1.1 % (0.0-5.0); HEMATOCRIT. 34.5 % (36.0-48.0); HEMOGLOBIN. 11.6 g/dL (12.0-16.0); LYMPHOCYTES % 15.4 % (20.0-50.0); MEAN CORPUSCULAR HEMOGLOBIN 30.6 pg (28.0-32.0); MEAN CORPUSCULAR VOLUME 90.8 fL (81.0-99.0); MEAN PLATELET VOLUME 8.3 fl (7.4-10.4); PLATELET 401 x1000/uL (130-400); RED CELL DISTRIBUTION WIDTH 14.6 % (11.6-14.6)
[2019-10-06 11:49] LABS: CHLORIDE 100 mEq/L (98-107)
[2019-10-06 11:51] LABS: PHENCYCLIDINE URINE SCREEN NEGATIVE (NEGATIVE)
[2019-10-06 12:17] LABS: OPIATES URINE SCREEN PRESUMTIVE POSITIVE (NEGATIVE)
[2019-10-06 13:45] VITALS: BP 181/95
== END 2019-10-06 13:45 | disposition home or self-care (01) ==
LOC: ER 08:02
DX: B37.9 Candidiasis, unspecified (principal); M54.5 Low back pain; E11.65 Type 2 diabetes mellitus with hyperglycemia; I10 Essential (primary) hypertension; E78.00 Pure hypercholesterolemia, unspecified; M54.30 Sciatica, unspecified side; Z98.1 Arthrodesis status; Z79.4 Long term (current) use of insulin
CPT/HCPCS: 36415; 72148; 80053; 80305; 81003; 81025; 82962; 85025; 96361; 96374; 99284; J2270; J7030

== ENCOUNTER 2019-11-02 13:05 | Emergency (ER) | payer MEDICAID ==
[~2019-11-02] VITALS: Ht 170.2 cm; Wt 81.0 kg
[2019-11-02] MEDS ORDERED: MORPHINE SULFATE 4 MG/ML CPJ (NOT FOR IM USE) IV STA (13:20)
[2019-11-02 16:03] LABS: BASOPHILS % 0.5 % (0.0-2.0); EOSINOPHILS % 0.2 % (0.0-5.0); HEMATOCRIT. 33.7 % (36.0-48.0); HEMOGLOBIN. 11.9 g/dL (12.0-16.0); LYMPHOCYTES % 18.2 % (20.0-50.0); MEAN CORPUSCULAR HEMOGLOBIN 31.3 pg (28.0-32.0); MEAN CORPUSCULAR VOLUME 88.9 fL (81.0-99.0); MEAN PLATELET VOLUME 8.3 fl (7.4-10.4); MONOCYTES % 5.8 % (2.0-8.0); NEUTROPHILS % 75.3 % (40.0-76.0); PLATELET 357 x1000/uL (130-400); RED BLOOD CELL COUNT 3.79 mill/uL (4.2-5.4); RED CELL DISTRIBUTION WIDTH 13.1 % (11.6-14.6)
[2019-11-02 16:10] LABS: CHLORIDE 95 mEq/L (98-107)
[2019-11-02 16:14] LABS: PROTHROMBIN TIME 10.6 sec (9.6-11.0)
[2019-11-02] MEDS ORDERED: MORPHINE SULFATE 4 MG/ML CPJ (NOT FOR IM USE) IV ONE (17:00)
[2019-11-02 17:48] LABS: UCG SCREEN NEGATIVE
[2019-11-02 17:50] LABS: CLARITY URINE CLOUDY (CLEAR); COLOR URINE YELLOW (YELLOW); KETONES URINE TRACE (NEGATIVE); LEUKOCYTE ESTERASE URINE NEGATIVE (NEGATIVE); NITRITE URINE NEGATIVE (NEGATIVE); OCCULT BLOOD URINE 1+ (NEGATIVE); PH URINE 5.5 (4.5-8.0); PROTEIN URINE 3+ (NEGATIVE); UROBILINOGEN URINE 0.2 E.U./dL (0.2-1.0)
[2019-11-02] MEDS ORDERED: IOHEXOL-300 100 ML BOTTLE ONE (18:23)
[2019-11-02 19:00] VITALS: BP 161/78
[2019-11-02] MEDS ORDERED: POTASSIUM CHLORIDE 20MEQ TABLET SR PO NR (19:00)
== END 2019-11-02 19:29 | disposition home or self-care (01) ==
LOC: ER 13:10
DX: K20.9 Esophagitis, unspecified (principal); I10 Essential (primary) hypertension; E11.9 Type 2 diabetes mellitus without complications; Z79.4 Long term (current) use of insulin; Z79.899 Other long term (current) drug therapy
CPT/HCPCS: 36415; 74177; 80053; 81003; 81025; 83690; 84484; 85025; 85610; 96374; 96376; 99285; J2270; Q9967

== ENCOUNTER 2020-11-01 22:44 | Emergency (ER) | payer OTHER, MEDICAID ==
[~2020-11-01] VITALS: Ht 170.2 cm; Wt 98.0 kg
[2020-11-01 22:48] VITALS: BP 194/94
== END 2020-11-02 00:36 | disposition left against medical advice (07) ==
LOC: ER 22:44
DX: R07.89 Other chest pain (principal); Z53.21 Procedure and treatment not carried out due to patient leaving prior to being seen by health care provider
CPT/HCPCS: 82962; 93005

== ENCOUNTER 2020-11-06 22:23 | Emergency (ER) | payer OTHER, MEDICAID ==
[~2020-11-06] VITALS: Ht 170.2 cm; Wt 109.1 kg
[2020-11-07 03:00] VITALS: BP 193/92
[2020-11-07] MEDS ORDERED: GABAPENTIN 300MG CAPSULE PO ONE (04:00)
[2020-11-07] MEDS ORDERED: FUROSEMIDE 40MG/4ML VIAL IVP ONE (04:00)
[2020-11-07 04:35] LABS: CHLORIDE 108 mEq/L (98-107)
[2020-11-07 04:38] LABS: EOSINOPHILS % 2.9 % (0.0-5.0); HEMATOCRIT. 24.8 % (36.0-48.0); HEMOGLOBIN. 8.6 g/dL (12.0-16.0); LYMPHOCYTES % 22.7 % (20.0-50.0); MEAN CORPUSCULAR VOLUME 92.3 fL (81.0-99.0); MEAN PLATELET VOLUME 8.7 fl (7.4-10.4); MONOCYTES % 6.6 % (2.0-8.0); NEUTROPHILS % 66.8 % (40.0-76.0); PLATELET 261 x1000/uL (130-400); RED BLOOD CELL COUNT 2.68 mill/uL (4.2-5.4); RED CELL DISTRIBUTION WIDTH 15.6 % (11.6-14.6)
== END 2020-11-07 04:31 | disposition left against medical advice (07) ==
LOC: ER 22:23
DX: R06.02 Shortness of breath (principal); R60.9 Edema, unspecified; F41.9 Anxiety disorder, unspecified; F32.9 Major depressive disorder, single episode, unspecified; E11.9 Type 2 diabetes mellitus without complications; E78.00 Pure hypercholesterolemia, unspecified; I10 Essential (primary) hypertension
CPT/HCPCS: 36415; 80053; 82962; 83880; 84484; 85025; 93005; 96374; 99284; J1940; 99283

== ENCOUNTER 2022-05-07 15:25 | Emergency (ER) | payer MEDICAID, OTHER ==
[~2022-05-07] VITALS: Ht 170.2 cm; Wt 89.0 kg
[~2022-05-07 15:25] MED LIST changes: +AMLO-139 PO; -AMLO-78 PO
[2022-05-07] MEDS ORDERED: LABETALOL HCL VIAL 20 MG/4 ML VIAL IV ONE (23:30)
[2022-05-07] MEDS ORDERED: HYDROCODONE/ACETAMINOPHEN 5/325MG TABLET PO ONE (23:30)
[2022-05-07 23:41] LABS: BASOPHILS % 0.3 % (0.0-2.0); EOSINOPHILS % 0.8 % (0.0-5.0); HEMATOCRIT. 34.5 % (36.0-48.0); HEMOGLOBIN. 11.4 g/dL (12.0-16.0); LYMPHOCYTES % 16.3 % (20.0-50.0); MEAN CORPUSCULAR HEMOGLOBIN 30.5 pg (28.0-32.0); MEAN PLATELET VOLUME 8.1 fl (7.4-10.4); MONOCYTES % 4.2 % (2.0-8.0); NEUTROPHILS % 78.4 % (40.0-76.0); PLATELET 338 x1000/uL (130-400); RED BLOOD CELL COUNT 3.75 mill/uL (4.2-5.4); RED CELL DISTRIBUTION WIDTH 13.5 % (11.6-14.6)
[2022-05-07 23:47] LABS: CHLORIDE 104 mEq/L (98-107)
[2022-05-07 23:50] LABS: PROTHROMBIN TIME 10.6 sec (9.6-11.0)
[2022-05-08] MEDS ORDERED: LABETALOL 5MG/ML SYR 20 MG/4 ML SYRINGE IV NR (00:15)
[2022-05-08] MEDS ORDERED: IOHEXOL-350 100 ML BOTTLE ONE (01:16)
[2022-05-08] MEDS ORDERED: DOXY100C5 MT (01:43)
[2022-05-08] MEDS ORDERED: CLIN-194 MT (01:43)
[2022-05-08] MEDS ORDERED: CLINDAMYCIN HCL 150MG CAPSULE PO SCH (01:45)
[2022-05-08] MEDS ORDERED: DOXYCYCLINE HYCLATE 100MG CAPSULE PO ONE (01:45)
[2022-05-08 03:02] VITALS: BP 160/88
== END 2022-05-08 03:02 | disposition home or self-care (01) ==
LOC: ER 15:25
DX: M79.672 Pain in left foot (principal); E11.9 Type 2 diabetes mellitus without complications; I10 Essential (primary) hypertension; Z99.2 Dependence on renal dialysis; Z79.899 Other long term (current) drug therapy
CPT/HCPCS: 36415; 73706; 80053; 82962; 85025; 85610; 96374; 99285; J3490; Q9967

== ENCOUNTER 2022-07-01 08:16 | Emergency (ER) | payer OTHER, MEDICAID ==
[~2022-07-01] VITALS: Ht 170.2 cm; Wt 91.0 kg
[~2022-07-01 08:16] MED LIST changes: +CLIN-194 MT; +DOXY100C5 MT
[2022-07-01] MEDS ORDERED: ONDANSETRON HCL 4MG/2ML INJ IV STA (08:36)
[2022-07-01] MEDS ORDERED: MORPHINE SULFATE 4 MG/ML CPJ (NOT FOR IM USE) IV STA (08:36)
[2022-07-01 09:54] LABS: BASOPHILS % 0.3 % (0.0-2.0); EOSINOPHILS % 4.5 % (0.0-5.0); HEMATOCRIT. 26.3 % (36.0-48.0); HEMOGLOBIN. 8.5 g/dL (12.0-16.0); LYMPHOCYTES % 14.8 % (20.0-50.0); MEAN CORPUSCULAR HEMOGLOBIN 30.5 pg (28.0-32.0); MEAN CORPUSCULAR VOLUME 93.9 fL (81.0-99.0); MEAN PLATELET VOLUME 7.5 fl (7.4-10.4); NEUTROPHILS % 74.4 % (40.0-76.0); PLATELET 386 x1000/uL (130-400); RED CELL DISTRIBUTION WIDTH 16.3 % (11.6-14.6)
[2022-07-01 10:07] LABS: PROTHROMBIN TIME 10.9 sec (9.6-11.0)
[2022-07-01 10:08] LABS: CHLORIDE 107 mEq/L (98-107)
[2022-07-01 10:13] LABS: HCG SCREEN NEGATIVE
[2022-07-01 13:30] VITALS: BP 155/80
== END 2022-07-01 13:35 | disposition home or self-care (01) ==
LOC: ER 08:16 → EDBEDREQ 12:29 → EDBEDREQSVC 12:29 → EDBEDREQTM 12:29 → ER 13:35 → CANBEDREQ 21:28
DX: R10.9 Unspecified abdominal pain (principal); I12.0 Hypertensive chronic kidney disease with stage 5 chronic kidney disease or end stage renal disease; E11.22 Type 2 diabetes mellitus with diabetic chronic kidney disease; N18.6 End stage renal disease; Z98.890 Other specified postprocedural states; Z79.899 Other long term (current) drug therapy
CPT/HCPCS: 36415; 71045; 74176; 80053; 83690; 84484; 84703; 85025; 85610; 93005; 96374; 96375; 99285; J2270; J2405

== ENCOUNTER 2023-10-15 16:51 | Emergency (ER) | payer MEDICARE, MEDICAID ==
[~2023-10-15] VITALS: Ht 165.1 cm; Wt 91.0 kg
[~2023-10-15 16:51] MED LIST changes: +AMLO1ORA PO; +CLON0.1T PO; +FURO-151 PO
[2023-10-15 16:53] VITALS: BP 152/74; PULSE 78; RESP 18; TEMP 98.3; O2SAT 96
== END 2023-10-15 20:35 | disposition left against medical advice (07) ==
LOC: ER 16:51
DX: S09.8XXA Other specified injuries of head, initial encounter (principal); M54.50 Low back pain, unspecified; I12.0 Hypertensive chronic kidney disease with stage 5 chronic kidney disease or end stage renal disease; N18.6 End stage renal disease; E11.22 Type 2 diabetes mellitus with diabetic chronic kidney disease; Z99.2 Dependence on renal dialysis; Z98.890 Other specified postprocedural states; Z79.899 Other long term (current) drug therapy; W18.39XA Other fall on same level, initial encounter; Y93.89 Activity, other specified; Y92.89 Other specified places as the place of occurrence of the external cause; Y99.8 Other external cause status
CPT/HCPCS: 93005; 99283

== ENCOUNTER 2024-06-20 17:47 | Inpatient (IN) | payer MEDICARE, MEDICAID ==
[~2024-06-20] VITALS: Ht 170.2 cm; Wt 88.9 kg
[~2024-06-20 17:47] MED LIST changes: -AMLO-139 PO; -AMLO1ORA PO; +ASPI-1406 PO; -CLIN-194 MT; +CLOP-31 PO; -DOXY100C5 MT; +HYDR-4001 MT; +OSEL30CA2 PO
[2024-06-20 19:20] VITALS: BP 98/59; PULSE 79; RESP 20; TEMP 36.3
[2024-06-20 20:00] VITALS: BP 98/59; PULSE 79; RESP 20; TEMP 36.2; O2SAT 97
[2024-06-20] MEDS ORDERED: DEXTROSE 50% WATER 50ML SYRINGE IV PRN (20:00)
[2024-06-20] MEDS ORDERED: ACETAMINOPHEN 325MG TABLET PO PRN ×3 (20:44→22:15)
[2024-06-20] MEDS: INSULIN LISPRO 100 UNITS/ML SUBCUT SCH (20:52)
[2024-06-20] MEDS: BLOOD SUGAR DIAGNOSTIC STRIP TEST SCH (20:52)
[2024-06-20] MEDS: HYDROCODONE/ACETAMINOPHEN 10/325MG TABLET PO PRN (21:00)
[2024-06-20] MEDS: DOCUSATE SODIUM 100MG CAPSULE PO SCH (21:00)
[2024-06-20] MEDS ORDERED: ZOLPIDEM TARTRATE 5MG TABLET PO PRN (22:15)
[2024-06-20] MEDS ORDERED: ONDANSETRON HCL 4MG/2ML INJ IV PRN (22:15)
[2024-06-20] MEDS ORDERED: NALOXONE HCL 0.4MG/ML VIAL IV PRN (22:30)
[2024-06-21] VITALS (10 sets, daily range): BP systolic 121–171; BP diastolic 62–98; PULSE 67–101; RESP 18–20; TEMP 35.9–36.6; O2SAT 95–98
[2024-06-21 00:41] LABS: BASOPHILS % 0.2 % (0.0-2.0); EOSINOPHILS % 1.8 % (0.0-5.0); HEMATOCRIT. 34.3 % (36.0-48.0); LYMPHOCYTES % 8.8 % (20.0-50.0); MEAN CORPUSCULAR HEMOGLOBIN 30.6 pg (28.0-32.0); MEAN CORPUSCULAR HGB CONC 32.2 g/dL (31.0-37.0); MEAN CORPUSCULAR VOLUME 95.2 fL (81.0-99.0); MEAN PLATELET VOLUME 8.8 fl (7.4-10.4); MONOCYTES % 4.7 % (2.0-8.0); NEUTROPHILS % 84.5 % (40.0-76.0); PLATELET 484 x1000/uL (130-400); RED BLOOD CELL COUNT 3.61 mill/uL (4.2-5.4); RED CELL DISTRIBUTION WIDTH 17.1 % (11.6-14.6); WHITE BLOOD COUNT 9.9 x1000/uL (4.5-11.0)
[2024-06-21 00:54] LABS: CHLORIDE 91 mEq/L (98-107); POTASSIUM 4.6 mEq/L (3.5-5.1); SODIUM 134 mEq/L (136-145)
[2024-06-21 00:55] LABS: CARBON DIOXIDE 28 mEq/L (21-32)
[2024-06-21 00:56] LABS: CALCIUM 9.3 mg/dL (8.7-10.4)
[2024-06-21 01:00] LABS: GLUCOSE 115 mg/dL (70-105)
[2024-06-21 01:01] LABS: UREA NITROGEN BLOOD 41 mg/dL (9-23)
[2024-06-21 01:02] LABS: ALANINE AMINOTRANSFERASE < 7 IU/L (10-49); ALBUMIN 4.2 g/dL (3.2-4.8); ASPARTATE AMINOTRANSFERASE 21 IU/L (<34)
[2024-06-21 01:03] LABS: BILIRUBIN TOTAL 0.4 mg/dL (0.1-1.0); PROTEIN TOTAL 7.9 g/dL (6.0-8.3)
[2024-06-21 01:42] LABS: INR 1.1; PROTHROMBIN TIME 11.8 sec (9.6-11.0)
[2024-06-21 06:34] LABS: CREATININE 8.7 mg/dL (0.6-1.0)
[2024-06-21] MEDS: SEVELAMER CARBONATE 800 MG TABLET PO SCH (06:35)
[2024-06-21] MEDS: SODIUM CHLORIDE 0.9% 3ML FLUSH IVF SCH (06:38)
[2024-06-21] MEDS: FOLIC ACID/VITAMIN B COMP W-C TABLET PO SCH (09:22)
[2024-06-21] MEDS: NICOTINE 14MG PATCH TD SCH (09:22)
[2024-06-21] MEDS: CLOPIDOGREL 75MG TABLET PO SCH (09:22)
[2024-06-21] MEDS: ENOXAPARIN 30MG/0.3ML SYR SUBCUT SCH (09:23)
[2024-06-21] MEDS: MORPHINE SULFATE 4 MG/ML INJ (FOR IV/IM USE) IV PRN (13:37)
[2024-06-21] MEDS: ENOXAPARIN 80MG/0.8ML SYR SUBCUT SCH (17:30)
[2024-06-21] MEDS: ATORVASTATIN CALCIUM 20MG TABLET PO SCH (20:22)
[2024-06-22] VITALS (7 sets, daily range): BP systolic 110–169; BP diastolic 57–78; PULSE 68–83; RESP 17–20; TEMP 35.7–36.6; O2SAT 93–99
[2024-06-22 08:30] LABS: HEPATITIS B SURFACE ANTIGEN NEGATIVE (Negative)
[2024-06-22 08:51] LABS: HEPATITIS A AB IGM NEGATIVE (Negative)
[2024-06-22 08:52] LABS: HEPATITIS B CORE AB IGM NEGATIVE (Negative); HEPATITIS C AB NON REACTIVE (Neg) (Negative)
[2024-06-22] MEDS: ENOXAPARIN 100MG/ML SYR SUBCUT SCH (09:11)
[2024-06-22] MEDS: MORPHINE SULFATE 4 MG/ML INJ (FOR IV/IM USE) IV PRN (14:16)
[2024-06-23] VITALS (7 sets, daily range): BP systolic 136–174; BP diastolic 49–72; PULSE 78–98; RESP 17–20; TEMP 36.1–36.8; O2SAT 95–100
[2024-06-23] MEDS: HYDROMORPHONE HCL/PF 2MG/ML INJ IV PRN (16:18)
[2024-06-24] VITALS (15 sets, daily range): BP systolic 113–173; BP diastolic 45–76; PULSE 77–95; RESP 16–20; TEMP 35.9–36.6; O2SAT 84–99
[2024-06-24 09:18] LABS: BASOPHILS % 0.4 % (0.0-2.0); EOSINOPHILS % 1.4 % (0.0-5.0); HEMATOCRIT. 31.5 % (36.0-48.0); HEMOGLOBIN. 10.3 g/dL (12.0-16.0); LYMPHOCYTES % 8.8 % (20.0-50.0); MEAN CORPUSCULAR HEMOGLOBIN 30.7 pg (28.0-32.0); MEAN CORPUSCULAR HGB CONC 32.6 g/dL (31.0-37.0); MEAN CORPUSCULAR VOLUME 94.1 fL (81.0-99.0); MEAN PLATELET VOLUME 8.1 fl (7.4-10.4); MONOCYTES % 5.8 % (2.0-8.0); NEUTROPHILS % 83.6 % (40.0-76.0); PLATELET 559 x1000/uL (130-400); RED BLOOD CELL COUNT 3.34 mill/uL (4.2-5.4); RED CELL DISTRIBUTION WIDTH 17.7 % (11.6-14.6); WHITE BLOOD COUNT 11.8 x1000/uL (4.5-11.0)
[2024-06-24 09:19] LABS: POTASSIUM 4.9 mEq/L (3.5-5.1)
[2024-06-24 09:21] LABS: CALCIUM 9.4 mg/dL (8.7-10.4)
[2024-06-24 09:29] LABS: CREATININE 10.6 mg/dL (0.6-1.0)
[2024-06-24] MEDS: CLONIDINE 0.1MG TABLET PO PRN (13:42)
[2024-06-24] MEDS: MORPHINE SULFATE 30MG TABLET SR PO SCH (20:44)
[2024-06-24] MEDS ORDERED: MORPHINE SULFATE 30MG TABLET SR PO SCH (21:00)
[2024-06-25] VITALS: BP 159/74; PULSE 86; RESP 19; TEMP 36.9; O2SAT 98
[2024-06-25 04:00] VITALS: BP 161/79; PULSE 85; RESP 20; TEMP 36.6; O2SAT 99
[2024-06-25 08:00] VITALS: BP 143/61; PULSE 80; RESP 20; TEMP 36.3; O2SAT 96
[2024-06-25 12:00] VITALS: BP 134/56; PULSE 84; RESP 20; TEMP 36.4; O2SAT 99
[2024-06-25 16:00] VITALS: BP 148/65; PULSE 83; RESP 20; TEMP 35.6; O2SAT 95
[2024-06-25 20:00] VITALS: BP 109/67; PULSE 96; RESP 18; TEMP 36.6; O2SAT 100
[2024-06-25] MEDS: OXYCODONE HCL/ACETAMINOPHEN 5/325MG TABLET PO PRN (22:18)
[2024-06-26] VITALS (14 sets, daily range): BP systolic 120–157; BP diastolic 54–96; PULSE 74–86; RESP 16–19; TEMP 36.22512–36.9; O2SAT 97–100
[2024-06-27] VITALS: BP 160/85; PULSE 94; RESP 19; TEMP 36.6; O2SAT 98
[2024-06-27 04:00] VITALS: BP 127/54; PULSE 83; RESP 19; TEMP 37.1; O2SAT 95
[2024-06-27 08:00] VITALS: BP 164/76; PULSE 87; RESP 19; TEMP 36.7; O2SAT 95
[2024-06-27 12:00] VITALS: BP 175/84; PULSE 86; RESP 18; TEMP 36.6; O2SAT 96
[2024-06-27 16:00] VITALS: BP 115/67; PULSE 85; RESP 19; TEMP 36.7; O2SAT 100
[2024-06-27 20:00] VITALS: BP 181/78; PULSE 85; RESP 18; TEMP 36.7; O2SAT 98
[2024-06-28] VITALS (11 sets, daily range): BP systolic 97–148; BP diastolic 53–78; PULSE 77–102; RESP 16–20; TEMP 36.4–37; O2SAT 91–99
[2024-06-28 07:35] LABS: BASOPHILS % 0.4 % (0.0-2.0); EOSINOPHILS % 0.6 % (0.0-5.0); HEMATOCRIT. 28.4 % (36.0-48.0); HEMOGLOBIN. 9.1 g/dL (12.0-16.0); LYMPHOCYTES % 9.9 % (20.0-50.0); MEAN CORPUSCULAR HGB CONC 31.9 g/dL (31.0-37.0); MEAN PLATELET VOLUME 7.9 fl (7.4-10.4); MONOCYTES % 5.6 % (2.0-8.0); NEUTROPHILS % 83.5 % (40.0-76.0); PLATELET 529 x1000/uL (130-400); RED BLOOD CELL COUNT 3.02 mill/uL (4.2-5.4); RED CELL DISTRIBUTION WIDTH 17.8 % (11.6-14.6)
[2024-06-28 07:58] LABS: CALCIUM 9.8 mg/dL (8.7-10.4); POTASSIUM 4.5 mEq/L (3.5-5.1)
[2024-06-28 08:22] LABS: CREATININE 9.1 mg/dL (0.6-1.0)
[2024-06-29] VITALS: BP 108/69; PULSE 90; RESP 18; TEMP 36.4; O2SAT 90
[2024-06-29 04:00] VITALS: BP 128/63; PULSE 106; RESP 18; TEMP 36.3; O2SAT 95
[2024-06-29] MEDS ORDERED: LIDOCAINE HCL 1% 10 MG/ML 10ML VIAL ONE (05:32)
[2024-06-29] MEDS ORDERED: BUPIVACAINE HCL/PF 0.5% (5MG/ML) 10ML ONE (05:32)
[2024-06-29] MEDS ORDERED: POLYMYXIN B SULFATE 500000 UNITS/VIAL ONE (05:32)
[2024-06-29 06:51] LABS: BASOPHILS % 0.1 % (0.0-2.0); EOSINOPHILS % 0.4 % (0.0-5.0); HEMATOCRIT. 32.7 % (36.0-48.0); HEMOGLOBIN. 10.6 g/dL (12.0-16.0); LYMPHOCYTES % 8.1 % (20.0-50.0); MEAN CORPUSCULAR HEMOGLOBIN 30.4 pg (28.0-32.0); MEAN CORPUSCULAR HGB CONC 32.4 g/dL (31.0-37.0); MEAN CORPUSCULAR VOLUME 93.8 fL (81.0-99.0); MEAN PLATELET VOLUME 8.3 fl (7.4-10.4); MONOCYTES % 6.2 % (2.0-8.0); NEUTROPHILS % 85.2 % (40.0-76.0); PLATELET 594 x1000/uL (130-400); RED BLOOD CELL COUNT 3.49 mill/uL (4.2-5.4); RED CELL DISTRIBUTION WIDTH 17.6 % (11.6-14.6); WHITE BLOOD COUNT 18.1 x1000/uL (4.5-11.0)
[2024-06-29 07:04] LABS: POTASSIUM 4.3 mEq/L (3.5-5.1)
[2024-06-29 07:05] LABS: CALCIUM 10.3 mg/dL (8.7-10.4)
[2024-06-29 07:26] LABS: CREATININE 7.5 mg/dL (0.6-1.0)
[2024-06-29] MEDS ORDERED: EPHEDRINE SULFATE 50MG/ML VIAL ONE (07:27)
[2024-06-29] MEDS ORDERED: FENTANYL CITRATE/PF 50MCG/ML 5ML VIAL ONE (07:28)
[2024-06-29] MEDS ORDERED: PROPOFOL 200MG/20ML VIAL IV ONE (07:28)
[2024-06-29] MEDS ORDERED: PHENYLEPHRINE HCL 10MG/ML 1ML IV ONE (07:28)
[2024-06-29] MEDS ORDERED: VECURONIUM BROMIDE 10 MG/VIAL IV ONE (07:44)
[2024-06-29] MEDS ORDERED: CEFAZOLIN SODIUM 1000MG/VIAL ONE (07:44)
[2024-06-29] MEDS ORDERED: ONDANSETRON HCL 4MG/2ML INJ ONE (07:44)
[2024-06-29] MEDS ORDERED: FENTANYL CITRATE/PF 50MCG/ML 2ML VIAL ONE ×2 (07:53→08:24)
[2024-06-29] MEDS ORDERED: ONDANSETRON HCL 4MG/2ML INJ IV PRN (08:15)
[2024-06-29] MEDS ORDERED: HYDROMORPHONE HCL/PF 1MG/ML INJ ONE ×2 (08:28→08:43)
[2024-06-29] MEDS ORDERED: HYDRALAZINE 20MG/ML VIAL ONE (08:43)
[2024-06-29] MEDS ORDERED: SUGAMMADEX SODIUM 200MG/2ML VIAL IV ONE (09:37)
[2024-06-29] MEDS ORDERED: METOCLOPRAMIDE HCL 10MG/2ML VIAL ONE (09:39)
[2024-06-29] MEDS ORDERED: MIDAZOLAM HCL 2 MG/2 ML VIAL ONE ×2 (10:28→10:31)
[2024-06-29] MEDS: HYDROMORPHONE HCL/PF 1MG/ML INJ IV PRN ×3 (11:05→15:25)
[2024-06-29] MEDS: DIPHENHYDRAMINE 50MG/ML VIAL IV PRN (11:30)
[2024-06-29 16:00] VITALS: BP 155/95; PULSE 91; RESP 20; TEMP 36.8; O2SAT 95
[2024-06-29 20:00] VITALS: BP 144/90; PULSE 92; RESP 20; TEMP 36.7; O2SAT 97
[2024-06-30] VITALS: BP 107/50; PULSE 95; RESP 18; TEMP 36.4; O2SAT 97
[2024-06-30 04:00] VITALS: BP 141/54; PULSE 87; RESP 19; TEMP 36.6; O2SAT 96
[2024-06-30 07:35] LABS: BASOPHILS % 0.5 % (0.0-2.0); EOSINOPHILS % 0.5 % (0.0-5.0); HEMATOCRIT. 25.8 % (36.0-48.0); HEMOGLOBIN. 8.1 g/dL (12.0-16.0); LYMPHOCYTES % 8.5 % (20.0-50.0); MEAN CORPUSCULAR HEMOGLOBIN 29.4 pg (28.0-32.0); MEAN CORPUSCULAR HGB CONC 31.5 g/dL (31.0-37.0); MEAN CORPUSCULAR VOLUME 93.4 fL (81.0-99.0); MONOCYTES % 5.7 % (2.0-8.0); NEUTROPHILS % 84.8 % (40.0-76.0); PLATELET 558 x1000/uL (130-400); RED BLOOD CELL COUNT 2.77 mill/uL (4.2-5.4); RED CELL DISTRIBUTION WIDTH 18.1 % (11.6-14.6); WHITE BLOOD COUNT 12.4 x1000/uL (4.5-11.0)
[2024-06-30 07:45] LABS: POTASSIUM 4.7 mEq/L (3.5-5.1)
[2024-06-30 07:46] LABS: CALCIUM 9.8 mg/dL (8.7-10.4)
[2024-06-30 07:59] LABS: CREATININE 9.8 mg/dL (0.6-1.0)
[2024-06-30 08:00] VITALS: BP_SYST 145; BP_SYST 154; BP_DIAS 67; BP_DIAS 90; PULSE 85; PULSE 93; RESP 20; TEMP 36.5; TEMP 36.7; O2SAT 97; O2SAT 98
[2024-06-30 12:00] VITALS: BP 149/68; PULSE 90; RESP 20; TEMP 36.6; O2SAT 100
[2024-06-30] MEDS: LACTULOSE 20G/30ML UDC PO SCH (15:00)
[2024-06-30] MEDS ORDERED: NA PHOS,M-B/NA PHOS,DI-BA ENEMA 118ML PR PRN (15:00)
[2024-06-30 16:00] VITALS: BP 159/62; PULSE 92; RESP 20; TEMP 36.7; O2SAT 97
[2024-06-30] MEDS ORDERED: CEFEPIME 1GM IN DEXT 5% 50ML IV SCH (16:30)
[2024-06-30] MEDS: VANCOMYCIN 1G PREMIX 200 ML IV SCH (17:30)
[2024-06-30] MEDS ORDERED: VANCOMYCIN 1000MG/250ML IV SCH (17:30)
[2024-06-30] MEDS ORDERED: CEFEPIME 1GM/50ML 50 ML IV SCH (18:00)
[2024-06-30] MEDS: CLOPIDOGREL 75MG TABLET PO SCH (18:09)
[2024-06-30 20:00] VITALS: BP 123/78; PULSE 89; RESP 20; TEMP 36.3; O2SAT 95
[2024-06-30] MEDS: SENNOSIDES 8.6MG TABLET PO SCH (20:50)
[2024-06-30] MEDS: EPOETIN ALFA-EPBX 4,000 UNIT/ML VIAL SUBCUT SCH (20:51)
[2024-06-30] MEDS: PANTOPRAZOLE 40MG DR TABLET PO SCH (20:51)
[2024-06-30] MEDS: CEFEPIME 1GM/50ML 50 ML IV SCH (22:48)
[2024-07-01] VITALS (14 sets, daily range): BP systolic 95–153; BP diastolic 37–79; PULSE 86–102; RESP 18–20; TEMP 36.2–36.8; O2SAT 95–100
[2024-07-01] MEDS ORDERED: CLOPIDOGREL 75MG TABLET PO SCH (09:00)
[2024-07-01] MEDS: LACTULOSE 20G/30ML UDC PO SCH (14:00)
[2024-07-01] MEDS: POLYETHYLENE GLYCOL 3350 (17GM) 1 DOSE PACK PO SCH (14:53)
[2024-07-01 17:22] LABS: HEMATOCRIT. 22.7 % (36.0-48.0); HEMOGLOBIN. 7.2 g/dL (12.0-16.0); MEAN CORPUSCULAR HEMOGLOBIN 29.9 pg (28.0-32.0); MEAN CORPUSCULAR HGB CONC 31.7 g/dL (31.0-37.0); MEAN CORPUSCULAR VOLUME 94.2 fL (81.0-99.0); MEAN PLATELET VOLUME 7.9 fl (7.4-10.4); PLATELET 579 x1000/uL (130-400); RED BLOOD CELL COUNT 2.41 mill/uL (4.2-5.4); WHITE BLOOD COUNT 14.7 x1000/uL (4.5-11.0)
[2024-07-01 17:24] LABS: DIFFERENTIAL COMMENT 1
[2024-07-01 17:25] LABS: POTASSIUM 4.9 mEq/L (3.5-5.1)
[2024-07-01 17:26] LABS: CALCIUM 9.8 mg/dL (8.7-10.4)
[2024-07-01 17:55] LABS: ANISOCYTOSIS 2+; HYPOCHROMASIA 1+; PLATELET ESTIMATE INCREASED
[2024-07-01] MEDS: VANCOMYCIN 1GM PMX (XELLIA) 200 ML IV NR (18:02)
[2024-07-01] MEDS: ENOXAPARIN 100MG/ML SYR SUBCUT SCH (18:21)
[2024-07-01] MEDS: OXYCODONE HCL/ACETAMINOPHEN 5/325MG TABLET PO PRN (22:22)
[2024-07-02 04:00] VITALS: BP 115/64; PULSE 87; RESP 20; TEMP 36.8; O2SAT 98
[2024-07-02 08:00] VITALS: BP 120/47; PULSE 87; RESP 18; TEMP 36.6; O2SAT 100
[2024-07-02 12:00] VITALS: BP 138/56; PULSE 85; RESP 18; TEMP 36.4; O2SAT 100
[2024-07-02] MEDS ORDERED: TRAZODONE HCL 50MG TABLET PO PRN (13:15)
[2024-07-02] MEDS: SERTRALINE HCL 50MG TABLET PO SCH (14:28)
[2024-07-02 16:00] VITALS: BP 104/47; PULSE 79; RESP 18; TEMP 36.3; O2SAT 98
[2024-07-02 19:35] LABS: CHLORIDE 101 mEq/L (98-107); POTASSIUM 5.1 mEq/L (3.5-5.1); SODIUM 135 mEq/L (136-145)
[2024-07-02 19:36] LABS: CALCIUM 9.5 mg/dL (8.7-10.4); CARBON DIOXIDE 17 mEq/L (21-32)
[2024-07-02 19:41] LABS: CREATININE 8.5 mg/dL (0.6-1.0); GLUCOSE 162 mg/dL (70-105); UREA NITROGEN BLOOD 52 mg/dL (9-23)
[2024-07-02 19:43] LABS: PHOSPHORUS 5.2 mg/dL (2.5-4.9)
[2024-07-02 20:00] VITALS: BP 99/60; PULSE 68; RESP 18; TEMP 36.4; O2SAT 95
[2024-07-03] VITALS (22 sets, daily range): BP systolic 105–164; BP diastolic 39–110; PULSE 71–98; RESP 16–20; TEMP 36.3–37.33632; O2SAT 95–100
[2024-07-03 05:08] LABS: HEMATOCRIT 21.3 % (36.0-48.0)
[2024-07-03 05:24] LABS: CARBON DIOXIDE 18 mEq/L (21-32); CHLORIDE 104 mEq/L (98-107); POTASSIUM 5.6 mEq/L (3.5-5.1); SODIUM 137 mEq/L (136-145)
[2024-07-03 05:25] LABS: HEMOGLOBIN 6.6 g/dL (12.0-16.0)
[2024-07-03 05:26] LABS: CALCIUM 9.7 mg/dL (8.7-10.4)
[2024-07-03 05:30] LABS: GLUCOSE 112 mg/dL (70-105); UREA NITROGEN BLOOD 58 mg/dL (9-23)
[2024-07-03 05:33] LABS: PHOSPHORUS 5.3 mg/dL (2.5-4.9)
[2024-07-03 05:40] LABS: CREATININE 9.3 mg/dL (0.6-1.0)
[2024-07-03] MEDS ORDERED: EPOETIN ALFA 4000UNITS/ML VIAL SUBCUT SCH (21:00)
[2024-07-03 21:56] LABS: HEMATOCRIT 33.1 % (36.0-48.0); HEMOGLOBIN 10.6 g/dL (12.0-16.0)
== END 2024-07-03 23:00 | DRG 239 ==
LOC: 8EST 19:40
PROVIDERS: ADMIT Internal Medicine; ATTEND Internal Medicine
PROC: 5A1D70Z Performance of Urinary Filtration, Intermittent, Less than 6 Hours Per Day (ICD-10-PCS; 2024-06-21)
PROC: 5A1D70Z Performance of Urinary Filtration, Intermittent, Less than 6 Hours Per Day (ICD-10-PCS; 2024-06-24)
PROC: 5A1D70Z Performance of Urinary Filtration, Intermittent, Less than 6 Hours Per Day (ICD-10-PCS; 2024-06-26)
PROC: 5A1D70Z Performance of Urinary Filtration, Intermittent, Less than 6 Hours Per Day (ICD-10-PCS; 2024-06-28)
PROC: 0Y6J0Z1 Detachment at Left Lower Leg, High, Open Approach (ICD-10-PCS; principal; 2024-06-29)
PROC: 5A1D70Z Performance of Urinary Filtration, Intermittent, Less than 6 Hours Per Day (ICD-10-PCS; 2024-07-01)
PROC: 30233N1 Transfusion of Nonautologous Red Blood Cells into Peripheral Vein, Percutaneous Approach (ICD-10-PCS; 2024-07-03)
PROC: 5A1D70Z Performance of Urinary Filtration, Intermittent, Less than 6 Hours Per Day (ICD-10-PCS; 2024-07-03)
DX: E11.52 Type 2 diabetes mellitus with diabetic peripheral angiopathy with gangrene (principal); A41.9 Sepsis, unspecified organism; N18.6 End stage renal disease; I12.0 Hypertensive chronic kidney disease with stage 5 chronic kidney disease or end stage renal disease; L97.518 Non-pressure chronic ulcer of other part of right foot with other specified severity; M86.8X7 Other osteomyelitis, ankle and foot; E11.22 Type 2 diabetes mellitus with diabetic chronic kidney disease; E83.39 Other disorders of phosphorus metabolism; E78.00 Pure hypercholesterolemia, unspecified; F43.10 Post-traumatic stress disorder, unspecified; F32.A Depression, unspecified; E78.5 Hyperlipidemia, unspecified; E11.621 Type 2 diabetes mellitus with foot ulcer; E11.69 Type 2 diabetes mellitus with other specified complication; I25.10 Atherosclerotic heart disease of native coronary artery without angina pectoris; E11.319 Type 2 diabetes mellitus with unspecified diabetic retinopathy without macular edema; H54.61 Unqualified visual loss, right eye, normal vision left eye; G47.00 Insomnia, unspecified; F17.210 Nicotine dependence, cigarettes, uncomplicated; E11.40 Type 2 diabetes mellitus with diabetic neuropathy, unspecified; D64.9 Anemia, unspecified; Z79.4 Long term (current) use of insulin; Z99.2 Dependence on renal dialysis; Z79.82 Long term (current) use of aspirin; Z79.01 Long term (current) use of anticoagulants; Z79.899 Other long term (current) drug therapy; Z95.5 Presence of coronary angioplasty implant and graft
CPT/HCPCS: 36415; 73630; 80048; 80053; 80202; 82270; 82962; 83036; 83735; 84100; 84145; 85014; 85018; 85025; 85651; 86705; 86709; 86850; 86900; 86920; 87070; 87077; 87186; 87340; 88307; 88311; 90935; 93970; 97110; 97162; 97164; 97166; 97530; 97542; J0360; J0665; J0690; J0692; J0885; J1171; J1200; J1650; J1815; J2003; J2250; J2270; J2371; J2405; J2704; J2765; J3010; J3370; J3490; P9016